=== PATIENT | female | born 1990 | race Caucasian/White ===

== ENCOUNTER 2018-07-09 11:21 | Emergency (ER) | payer SELFPAY ==
--- NOTE | 2018-07-09 12:35 | EDPHYS ---
Physician Documentation [facility] Name: Anu Tiwari Age: 28 yrs Sex: Female : 1990 Arrival Date: 07/09/2018 Time: 11:31 Bed DIS1 Private MD: ED Physician Darvin Hill HPI: 07/09 12:38 This 28 yrs old Female presents to ER via Ambulatory with complaints of Knot kb on Neck, Insect Bite. 12:38 the patient presents with a swollen area of the right ankle. Description: erythematous, kb swollen. Onset: The symptoms/episode began/occurred 2 week(s) ago. Possible cause(s): insect sting. Associated signs and symptoms: Pertinent positives: erythema, swelling, Pertinent negatives: discharge, drainage, foreign body sensation, fever, headache, nausea, shortness of breath, vomiting. Modifying factors: the symptoms are alleviated by nothing, the symptoms are aggravated by pressure, touching. Severity of symptoms: At their worst the symptoms were mild, in the emergency department the symptoms are unchanged. The patient has not experienced similar symptoms in the past. The patient has not recently seen a physician. Also reports knot on neck that has been there for a year. "I'm just being seen because I brought my daughter to be seen.". 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 - Social history:: Smoking status: Patient uses tobacco products, smokes one-half pack cigarettes per day. - Ebola Screening: : Patient denies travel to an Ebola-affected area in the 21 days before illness onset. ROS: 12:39 Constitutional: Negative for fever, chills, and weight loss, Cardiovascular: Negative kb for chest pain, palpitations, and edema, Respiratory: Negative for shortness of breath, cough, wheezing, and pleuritic chest pain, Abdomen/GI: Negative for abdominal pain, nausea, vomiting, diarrhea, and constipation, Neuro: Negative for headache, weakness, numbness, tingling, and seizure. 12:39 Neck: Positive for "knot". 12:39 MS/extremity: Positive for bite, erythema, pain, swelling, tenderness, of the right ankle. Exam: 12:35 Constitutional: This is a well developed, well nourished patient who is awake, alert, kb and in no acute distress. Head/Face: Normocephalic, atraumatic. Chest/axilla: Normal chest wall appearance and motion. Nontender with no deformity. No lesions are appreciated. Cardiovascular: Regular rate and rhythm with a normal S1 and S2. No gallops, murmurs, or rubs. Normal PMI, no JVD. No pulse deficits. Respiratory: Lungs have equal breath sounds bilaterally, clear to auscultation and percussion. No rales, rhonchi or wheezes noted. No increased work of breathing, no retractions or nasal flaring. Abdomen/GI: Soft, non-tender, with normal bowel sounds. No distension or tympany. No guarding or rebound. No evidence of tenderness throughout. Neuro: Awake and alert, GCS 15, oriented to person, place, time, and situation. Cranial nerves II-XII grossly intact. Motor strength 5/5 in all extremities. Sensory grossly intact. Cerebellar exam normal. Normal gait. 12:35 Neck: lump felt at right base of skull, nonmobile. 12:35 Musculoskeletal/extremity: Extremities: noted in the right ankle: erythema, pain, swelling, ROM: no acute changes. Vital Signs: 11:53 BP 108 / 86; Pulse 73; Resp 18; Temp 97.5; Pulse Ox 99% on R/A; Weight 61.23 kg (R); aj1 Height 5 ft. 1 in. (154.94 cm) (R); Pain 6/10; 12:50 BP 110 / 84; Pulse 69; Resp 17; Pulse Ox 100% on R/A; rb1 11:53 Body Mass Index 25.51 (61.23 kg, 154.94 cm) aj1 MDM: 12:01 Patient medically screened. kb 12:37 Data reviewed: vital signs, nurses notes. Data interpreted: Pulse oximetry: on room air kb is 99 %. Interpretation: normal. Counseling: I had a detailed discussion with the patient and/or guardian regarding: the historical points, exam findings, and any diagnostic results supporting the discharge/admit diagnosis, the need for outpatient follow up, a family practitioner, to return to the emergency department if symptoms worsen or persist or if there are any questions or concerns that arise at home. Administered Medications: 12:57 Drug: Bactrim (160 mg-800 mg (DS) 1 tablet Route: PO; rb1 13:08 Follow up: Response: Medication administered at discharge. rb1 Disposition: 16:43 Co-signature as Attending Physician, Darvin Hill MD. rn Disposition: 07/09/18 12:34 Discharged to Home. Impression: Bitten or stung by nonvenomous insect and other nonvenomous arthropods, Local infection of the skin and subcutaneous tissue, unspecified. - Condition is Stable. - Discharge Instructions: Insect Bite, [id number], Wound Infection, Dncg-gn-[id number]. - Prescriptions for Bactrim DS 800- 160 mg Oral Tablet - take 1 tablet by ORAL route every 12 hours for 7 days; 14 tablet. - Medication Reconciliation Form, Thank You Letter, Antibiotic Education, Prescription Opioid Use form. - Follow up: Private Physician; When: 2 - 3 days; Reason: Recheck today's complaints, Continuance of care, Re-evaluation by your physician. Follow up: Emergency Department; When: As needed; Reason: Worsening of condition. Signatures: Lidia Tim, BRAD-C METHODS STUDY ANALYST-Ckb Arlette Bruce RN RN aj1 Darvin Hill MD MD rn Barber, Rebecca, RN RN rb1 Corrections: (The following items were deleted from the chart) 13:08 12:34 07/09/2018 12:34 Discharged to Home. Impression: Bitten or stung by nonvenomous rb1 insect and other nonvenomous arthropods; Local infection of the skin and subcutaneous tissue, unspecified. Condition is Stable. Forms are Medication Reconciliation Form, Thank You Letter, Antibiotic Education, Prescription Opioid Use. Follow up: Private Physician; When: 2 - 3 days; Reason: Recheck today's complaints, Continuance of care, Re-evaluation by your physician. Follow up: Emergency Department; When: As needed; Reason: Worsening of condition. kb
--- NOTE | 2018-07-09 12:35 | ER ---
Nurse's Notes [facility] Name: Anu Tiwari Age: 28 yrs Sex: Female : 1990 Arrival Date: 07/09/2018 Time: 11:31 Bed DIS1 Private MD: Diagnosis: Bitten or stung by nonvenomous insect and other nonvenomous arthropods;Local infection of the skin and subcutaneous tissue, unspecified Presentation: 07/09 11:51 Presenting complaint: Patient states: "I have a really big knot on the back of my neck, aj1 it causes a lot of pressure. Also I got bit by something a week ago and its never went down." Reports the knot to the back of her neck has been there for the past year. Patient has not seen her PHCP regarding this complaint. Swelling noted to side of right foot. Transition of care: patient was not received from another setting of care. Onset of symptoms was 2017. Risk Assessment: Do you want to hurt yourself or someone else? Patient reports no desire to harm self or others. Initial Sepsis Screen: Does the patient meet any 2 criteria? No. Patient's initial sepsis screen is negative. Does the patient have a suspected source of infection? No. Patient's initial sepsis screen is negative. Care prior to arrival: None. 11:51 Method Of Arrival: Ambulatory aj1 11:51 Acuity: MARIPOSA 4 aj1 Triage Assessment: 11:53 General: Appears in no apparent distress. comfortable, Behavior is calm, cooperative, aj1 appropriate for age. Pain: Complains of pain in neck Pain currently is 6 out of 10 on a pain scale. Neuro: Level of Consciousness is awake, alert, obeys commands, Speech is normal, Facial symmetry appears normal. Cardiovascular: Patient's skin is warm and dry. Respiratory: Airway is patent Respiratory effort is even, unlabored, Respiratory pattern is regular, symmetrical. 12:20 Bite description: bite sustained to right ankle by unknown insect, animal information: rb1 vaccination(s) is not applicable. 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 - Social history:: Smoking status: Patient uses tobacco products, smokes one-half pack cigarettes per day. - Ebola Screening: : Patient denies travel to an Ebola-affected area in the 21 days before illness onset. Screenin:20 Abuse screen: Denies threats or abuse. Nutritional screening: No deficits noted. rb1 Tuberculosis screening: No symptoms or risk factors identified. Fall Risk None identified. Assessment: 12:20 General: Appears in no apparent distress. comfortable, Behavior is calm, cooperative, rb1 Denies fever. Pain: Complains of pain in right ankle Pain currently is 5 out of 10 on a pain scale. Pain began Got bit by an insect x 2 weeks, swelling noted to the right ankle. Neuro: Level of Consciousness is awake, alert, obeys commands, Oriented to person, place, time, situation. Cardiovascular: Capillary refill < 3 seconds is brisk in bilateral fingers. Respiratory: Airway is patent Respiratory effort is even, unlabored, Respiratory pattern is regular, symmetrical. GI: No signs and/or symptoms were reported involving the gastrointestinal system. : No signs and/or symptoms were reported regarding the genitourinary system. Derm: Skin is intact, Skin is pink, warm \\T\\ dry. Musculoskeletal: Range of motion: intact in all extremities, Swelling present in right ankle. 12:50 Reassessment: Patient appears in no apparent distress at this time. No changes from rb1 previously documented assessment. Vital Signs: 11:53 BP 108 / 86; Pulse 73; Resp 18; Temp 97.5; Pulse Ox 99% on R/A; Weight 61.23 kg (R); aj1 Height 5 ft. 1 in. (154.94 cm) (R); Pain 6/10; 12:50 BP 110 / 84; Pulse 69; Resp 17; Pulse Ox 100% on R/A; rb1 11:53 Body Mass Index 25.51 (61.23 kg, 154.94 cm) aj1 ED Course: 11:31 Patient arrived in ED. as 11:52 Triage completed. aj1 11:53 Lidia Tim FNP-C [facility]. kb 11:53 Darvin Hill MD is Attending Physician. kb 11:53 Arm band placed on Patient placed in waiting room. aj1 12:20 Patient has correct armband on for positive identification. Bed in low position. Call rb1 light in reach. Side rails up X 1. Pulse ox on. NIBP on. 12:50 Lelo Oviedo, RN is Primary Nurse. rb1 12:50 No provider procedures requiring assistance completed. Patient did not have IV access rb1 during this emergency room visit. Administered Medications: 12:57 Drug: Bactrim (160 mg-800 mg (DS) 1 tablet Route: PO; rb1 13:08 Follow up: Response: Medication administered at discharge. rb1 Outcome: 12:34 Discharge ordered by MD. kb 13:00 Discharged to home ambulatory, with family. rb1 13:00 Condition: stable 13:00 Discharge instructions given to patient, Instructed on discharge instructions, follow up and referral plans. medication usage, Demonstrated understanding of instructions, follow-up care, medications, Prescriptions given X 1. 13:08 Patient left the ED. rb1 Signatures: Lidia Tim, HIGH SCHOOL LIBRARIAN-C HIGH SCHOOL LIBRARIAN-CkArlette Dover RN RN ajKimberly Newby as Lelo Oviedo, RN RN rb1 Corrections: (The following items were deleted from the chart) 13:07 12:50 Discharged to home ambulatory, with family, rb1 rb1 13:07 12:50 Condition: stable rb1 rb1 13: 12:50 Discharge instructions given to patient, Instructed on discharge instructions, rb1 follow up and referral plans. medication usage, Demonstrated understanding of instructions, follow-up care, medications, Prescriptions given X 1, rb1
[2018-07-09] MEDS ORDERED: SMZ./TMP. 800/160 MG TABLET ONE (13:00)
[2018-07-09 13:12] VITALS: TEMP 97.5
[2018-07-09 13:13] VITALS: BP 110/84; O2SAT 100
== END 2018-07-09 13:08 | disposition home or self-care (01) ==
LOC: ER 11:21
DX: S10.96XA Insect bite of unspecified part of neck, initial encounter (principal); S90.561A Insect bite (nonvenomous), right ankle, initial encounter; L08.9 Local infection of the skin and subcutaneous tissue, unspecified; W57.XXXA Bitten or stung by nonvenomous insect and other nonvenomous arthropods, initial encounter; F17.210 Nicotine dependence, cigarettes, uncomplicated; Z91.018 Allergy to other foods
CPT/HCPCS: 99283

== ENCOUNTER 2018-08-09 16:13 | Observation (INO) | payer SELFPAY ==
[2018-08-09] MEDS ORDERED: FAMOTIDINE 20 MG/2 ML VIAL IV ONE (16:47)
[2018-08-09] MEDS ORDERED: NA CHLORIDE 0.9% 1,000 ML ONE (16:47)
[2018-08-09] MEDS ORDERED: ONDANSETRON 4 MG/2 ML VIAL ONE ×2 (16:47→18:12)
[2018-08-09 16:54] LABS: Absolute Lymphocytes (CBC) 2.1 K/uL (0.7-4.9); Absolute Monocytes 0.6 K/uL (0.1-1.3); Absolute Neutrophil 7.5 K/uL (1.8-8.0); Basophils % 1.2 % (0-1.3); Eosinophils % 1.3 % (0-4.4); Lymphocytes % 20.2 % (15.3-44.8); MCH 23.8 pg (27.0-35.0); MCV 71.4 fL (80-100); Monocytes % 5.7 % (3.3-12.3); RBC Red Blood Cell Count 4.76 M/uL (3.86-4.86)
[2018-08-09 17:02] LABS: Urine Bacteria <20 /HPF (<20); Urine Culture Reflex Order REFLEXED; Urine Mucus LIGHT /HPF (NONE SEEN); Urine RBC <5 /HPF (NONE SEEN)
[2018-08-09 17:03] LABS: Urine Amorphous Sediment 2+ /HPF (NONE SEEN)
[2018-08-09 17:10] LABS: ALT/SGPT 16 U/L (12-78); AST/SGOT 9 U/L (15-37); Albumin 3.5 g/dL (3.4-5.0); Alkaline Phosphatase 69 U/L (45-117); BUN Blood Urea Nitrogen 10 mg/dL (7-18); Bicarbonate 24 mmol/L (21-32); Bilirubin Direct 0.1 mg/dL (0-0.2); Bilirubin Total 0.3 mg/dL (0.2-1.0); Glucose Level 100 mg/dL (74-106); Lipase 90 U/L (73-393); Potassium 3.2 mmol/L (3.5-5.1); Protein, Total 7.2 g/dL (6.4-8.2); Sodium Level 139 mmol/L (136-145)
[2018-08-09] MEDS ORDERED: PROMETHAZINE 25 MG/ML VIAL ONE (17:22)
[2018-08-09] MEDS ORDERED: NA CHLORIDE 0.9% 500 ML ONE ×2 (17:22→20:08)
[2018-08-09] MEDS ORDERED: MORPHINE 4 MG/ML SYR ONE (18:12)
--- NOTE | 2018-08-09 19:10 | RAD REPORT ---
EXAM DESCRIPTION: CTAbdomen Pelvis W Contrast - 08/09/2018 6:56 pm CLINICAL HISTORY: Abdominal pain. Abd pain;Nausea / vomiting COMPARISON: CT ABD PELVIS W CONTRAST dated 06/24/2014 TECHNIQUE: Biphasic CT imaging of the abdomen and pelvis was performed with 100 ml non-ionic IV cont rast. All CT scans are performed using dose optimization technique as appropriate and may include automated exposure control or mA/KV adjustment according to patient size. FINDINGS: The lung bases are clear.Stomach demonstrates rugal thickening. The liver demonstrates a small cyst in the superior right lobe. Cholecystectomy clips are noted. The spleen, pancreas, adrenal glands kidneys are within normal limits. No bowel obstruction, free air, free fluid or abscess. The appendix is normal. No evidence of signi ficant lymphadenopathy. No suspicious bony findings. Mild fluid is seen in the endometrial canal. IMPRESSION: Rugal thickening may indicate gastritis.
[2018-08-09 19:23] LABS: Urine Blood TRACE (NEG); Urine Glucose NEGATIVE (NEG); Urine Protein 1+ (NEG); Urine Specific Gravity 1.025 (1.005-1.030)
[2018-08-09] MEDS ORDERED: POTASSIUM 25 MEQ EFFERV TAB ONE (19:55)
[2018-08-09] MEDS ORDERED: KCL 20 MEQ/100 mL IVPB 20 MEQ/100 ML BAG IV ONE (20:08)
[2018-08-09] MEDS ORDERED: PANTOPRAZOLE 40 MG INJ ONE (20:12)
--- NOTE | 2018-08-09 20:25 | ER ---
Nurse's Notes [facility] Name: Anu Tiwari Age: 28 yrs Sex: Female : 1990 Arrival Date: 08/09/2018 Time: 16:15 Bed 20 Private MD: None, None Diagnosis: Nausea and vomiting-Intractable;Diarrhea, unspecified Presentation: 08/09 16:18 Presenting complaint: Patient states: N/V/D for the past 2 days. Denies fever. Reports aj1 diffuse abdominal pain. Transition of care: patient was not received from another setting of care. Onset of symptoms was August 08, 2018. Risk Assessment: Do you want to hurt yourself or someone else? Patient reports no desire to harm self or others. Initial Sepsis Screen: Does the patient meet any 2 criteria? No. Patient's initial sepsis screen is negative. Does the patient have a suspected source of infection? Yes: Acute abdominal pain. Care prior to arrival: None. 16:18 Method Of Arrival: Ambulatory aj1 16:18 Acuity: MARIPOSA 3 aj1 Triage Assessment: 16:19 General: Appears in no apparent distress. uncomfortable, Behavior is calm, cooperative, aj1 appropriate for age. Pain: Complains of pain in abdomen diffusely Pain currently is 10 out of 10 on a pain scale. Neuro: Level of Consciousness is awake, alert, obeys commands. Cardiovascular: Patient's skin is warm and dry. Respiratory: Airway is patent Respiratory effort is even, unlabored, Respiratory pattern is regular, symmetrical. GI: Reports diarrhea, nausea, vomiting. 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 - Social history:: Smoking status: Patient uses tobacco products, smokes one-half pack cigarettes per day. - Ebola Screening: : Patient denies travel to an Ebola-affected area in the 21 days before illness onset. Screenin:30 Abuse screen: Denies threats or abuse. Denies injuries from another. Nutritional sv screening: No deficits noted. Tuberculosis screening: No symptoms or risk factors identified. Fall Risk None identified. Assessment: 16:30 General: Appears in no apparent distress. uncomfortable, well developed, Behavior is sv calm, cooperative. Pain: Complains of pain in abdomen diffusely Pain currently is 10 out of 10 on a pain scale. Is continuous. Neuro: Level of Consciousness is awake, alert, obeys commands, Oriented to person, place, time, situation, Moves all extremities. Full function Gait is steady. Respiratory: Respiratory effort is even, unlabored, Respiratory pattern is regular, symmetrical. GI: Abdomen is flat, Reports intolerance of fluids, intolerance of food, nausea, vomiting, dry heaving. Derm: Skin is normal. 17:21 Reassessment: Patient appears in no apparent distress at this time. No changes from sv previously documented assessment. Patient and/or family updated on plan of care and expected duration. Pain level reassessed. Patient is alert, oriented x 3, equal unlabored respirations, skin warm/dry/pink. 18:15 Reassessment: Patient appears in no apparent distress at this time. No changes from sv previously documented assessment. Patient and/or family updated on plan of care and expected duration. Pain level reassessed. Patient is alert, oriented x 3, equal unlabored respirations, skin warm/dry/pink. 19:09 Reassessment: Patient appears in no apparent distress at this time. No changes from jd3 previously documented assessment. Patient and/or family updated on plan of care and expected duration. Pain level reassessed. Patient is alert, oriented x 3, equal unlabored respirations, skin warm/dry/pink. pt reported dry mouth, provider notified, pt notified of NPO status and given mouth moister swabs. 20:19 Reassessment: Patient appears in no apparent distress at this time. Patient and/or jd3 family updated on plan of care and expected duration. Pain level reassessed. Patient is alert, oriented x 3, equal unlabored respirations, skin warm/dry/pink. 20:58 Reassessment: Patient appears in no apparent distress at this time. No changes from jd3 previously documented assessment. Patient and/or family updated on plan of care and expected duration. Pain level reassessed. Patient is alert, oriented x 3, equal unlabored respirations, skin warm/dry/pink. 21:43 Reassessment: Patient appears in no apparent distress at this time. Patient and/or jd3 family updated on plan of care and expected duration. Pain level reassessed. Patient is alert, oriented x 3, equal unlabored respirations, skin warm/dry/pink. report given to Nathalia VITAL. Vital Signs: 16:19 BP 120 / 77; Pulse 62; Resp 16; Temp 97.7; Pulse Ox 99% on R/A; Weight 58.97 kg (R); aj1 Height 5 ft. 1 in. (154.94 cm) (R); Pain 10/10; 18:10 BP 106 / 70; Pulse 76; Resp 16; Pulse Ox 99% ; sv 19:10 BP 134 / 83; Pulse 64; Resp 16 S; Pulse Ox 99% on R/A; jd3 20:18 BP 130 / 81; Pulse 62; Resp 16 S; Pulse Ox 98% on R/A; jd3 20:57 BP 110 / 69; Pulse 63; Resp 17 S; Pulse Ox 99% on R/A; jd3 16:19 Body Mass Index 24.56 (58.97 kg, 154.94 cm) aj1 ED Course: 16:15 Patient arrived in ED. sb2 16:15 None, None is Private Physician. sb2 16:18 Triage completed. aj1 16:19 Arm band placed on Patient placed in an exam room. aj1 16:25 Jim Blunt PA is PHCP. cp 16:25 Singh Dinh MD is Attending Physician. cp 16:26 Roxi Coles, AMANUEL is Primary Nurse. sv 16:30 Patient has correct armband on for positive identification. Door closed. Warm blanket sv given. Head of bed elevated. 16:35 Pulse ox on. NIBP on. jp3 16:35 Initial lab(s) drawn, by ok, sent to lab. Urine collected: clean catch specimen, clear, jp3 tuan colored. Inserted saline lock: 22 gauge in right antecubital area, using aseptic technique. Blood collected. 16:45 Bed in low position. Call light in reach. Side rails up X 1. Warm blanket given. jp3 16:46 Basic Metabolic Panel Sent. jp3 16:46 CBC with Diff Sent. jp3 16:46 Creatinine for Radiology Sent. jp3 16:46 Hepatic Function Sent. jp3 16:46 Lipase Sent. jp3 16:46 Urine Microscopic Only Sent. jp3 18:11 Radiology exam delayed due to test not completed at this time. nj 18:[address] Scan. sv 18:40 Urine --Ancillary (enter results) Sent. sv 18:[address] nj 18:56 CT Abd/Pelvis - W/Contrast: no oral contrast In Process Unspecified. EDMS 19:00 Report given to Leo VITAL. sv 20:24 Clem Tabares MD is Hospitalizing Provider. cp 21:35 No provider procedures requiring assistance completed. Patient admitted, IV remains in jd3 place. Administered Medications: 16:44 Drug: NS 0.9% 1000 ml Route: IV; Rate: 1 bolus; Site: right antecubital; sv 17:21 Follow up: Response: No adverse reaction; IV Status: Completed infusion; IV Intake: sv 1000ml 16:44 Drug: Pepcid 20 mg Route: IVP; Site: right antecubital; sv 17:20 Follow up: Response: No adverse reaction sv 16:47 Drug: Zofran 4 mg Route: IVP; Site: right antecubital; sv 17:20 Follow up: Response: No adverse reaction sv 17:20 Drug: Phenergan 25 mg Route: IVP; Site: right antecubital; sv 18:07 Follow up: Response: No adverse reaction; No change in condition sv 17:20 Drug: NS 0.9% 500 ml Route: IV; Rate: bolus; Site: right antecubital; sv 18:07 Follow up: Response: No adverse reaction; IV Status: Completed infusion; IV Intake: sv 500ml 18:14 Drug: Zofran 4 mg Route: IVP; Site: right antecubital; sv 18:28 Follow up: Response: No adverse reaction sv 18:16 Drug: morphine 2 mg Route: IVP; Site: right antecubital; sv 18:28 Follow up: Response: No adverse reaction sv 19:54 Drug: Potassium Effervescent Tablet 50 mEq Route: PO; jd3 20:02 Follow up: Response: Other; pt threw up potassium effervescent, provider notified. jd3 20:14 Drug: NS 0.9% 500 ml Route: IV; Rate: bolus; Site: right antecubital; jd3 21:36 Follow up: Response: No adverse reaction; IV Status: Completed infusion; IV Intake: jd3 500ml 20:14 Drug: ProTONIX 40 mg Route: IVP; Site: right antecubital; jd3 20:44 Follow up: Response: No adverse reaction jd3 20:15 Drug: Potassium Chloride 20 mEq Route: IV; Rate: calculated rate; Site: right jd3 antecubital; 21:36 Follow up: Response: infussion slowed due to pt reporting burning at the IV site. site jd3 intact with good blood return. pt reported relief with slower infusion rate.; IV Status: Infusion continued upon admission Intake: 17:21 IV: 1000ml; Total: 1000ml. sv 18:07 IV: 500ml; Total: 1500ml. sv 21:36 IV: 500ml; Total: 2000ml. jd3 Outcome: 20:24 Decision to Hospitalize by Provider. cp 21:42 Condition: stable jd3 21:42 Admitted to Med/surg accompanied by nurse, via wheelchair, room 229, with chart, Report jd3 called to Nathalia VITAL 21:42 Instructed on the need for admit, Demonstrated understanding of instructions. 21:43 Patient left the ED. jd3 Signatures: Dispatcher [employer] EDMS Arlette Bruce RN RN ajRoxi Hemphill RN RN Jim Mercado PA PA Kj Wagner Jonathon RN RN jMalgorzata Franco2 Jeremy Rocha jp3 Corrections: (The following items were deleted from the chart) 22:02 22:00 Patient left the ED. jd3 jd3
--- NOTE | 2018-08-09 20:25 | EDPHYS ---
Physician Documentation [facility] Name: Anu Tiwari Age: 28 yrs Sex: Female : 1990 Arrival Date: 08/09/2018 Time: 16:15 Bed 20 Private MD: None, None ED Physician Singh Dinh HPI: 08/09 16:35 This 28 yrs old Female presents to ER via Ambulatory with complaints of cp Nausea/Vomiting. 16:35 The patient presents to the emergency department with nausea, with "dry heaves", cp vomiting, that is continuous, diarrhea, that is continuous, abdominal pain, of the abdomen diffusely. 16:35 Onset: The symptoms/episode began/occurred 2 day(s) ago. cp 16:35 Possible causes: unknown. Associated signs and symptoms: Pertinent positives: anorexia, cp Pertinent negatives: constipation, fever, GI bleeding, vaginal discharge. Severity of symptoms: in the emergency department the symptoms are unchanged. 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 - Social history:: Smoking status: Patient uses tobacco products, smokes one-half pack cigarettes per day. - Ebola Screening: : Patient denies travel to an Ebola-affected area in the 21 days before illness onset. ROS: 16:40 Constitutional: Positive for poor PO intake, Negative for body aches, chills, fever. cp 16:40 Eyes: Negative for injury, pain, redness, and discharge. cp 16:40 ENT: Negative for drainage from ear(s), ear pain, sore throat, difficulty swallowing, difficulty handling secretions. 16:40 Cardiovascular: Negative for chest pain, edema, palpitations. 16:40 Respiratory: Negative for cough, shortness of breath, wheezing. 16:40 Abdomen/GI: Positive for abdominal pain, nausea, vomiting, and diarrhea, Negative for constipation, hematemesis, black/tarry stool, rectal bleeding. 16:40 : Negative for urinary symptoms. 16:40 Skin: Negative for cellulitis, rash. 16:40 Neuro: Negative for altered mental status, headache, weakness. 16:40 All other systems are negative. Exam: 16:45 Constitutional: The patient appears in no acute distress, alert, awake, non-toxic, well cp developed, well nourished, uncomfortable. 16:45 Head/Face: Normocephalic, atraumatic. cp 16:45 Eyes: Periorbital structures: appear normal, Conjunctiva: normal, no exudate, no injection, Sclera: no appreciated abnormality, Lids and lashes: appear normal, bilaterally. 16:45 ENT: External ear(s): are unremarkable, Nose: is normal, Mouth: Lips: moist, Oral mucosa: pink and intact, moist, Posterior pharynx: is normal, airway is patent, no erythema, no exudate. 16:45 Neck: ROM/movement: is normal, is supple, without pain, no range of motions limitations, no meningismus, no nuchal rigidity. 16:45 Chest/axilla: Inspection: normal, Palpation: is normal, no crepitus, no tenderness. 16:45 Cardiovascular: Rate: normal, Rhythm: regular. 16:45 Respiratory: the patient does not display signs of respiratory distress, Respirations: normal, no use of accessory muscles, no retractions, no splinting, no tachypnea, Breath sounds: are clear throughout, no decreased breath sounds, no stridor, no wheezing. 16:45 Abdomen/GI: Inspection: abdomen appears normal, Bowel sounds: active, all quadrants, Palpation: soft, in all quadrants, moderate abdominal tenderness, in all quadrants, rebound tenderness, is not appreciated, involuntary guarding, is not appreciated. Vital Signs: 16:19 BP 120 / 77; Pulse 62; Resp 16; Temp 97.7; Pulse Ox 99% on R/A; Weight 58.97 kg (R); aj1 Height 5 ft. 1 in. (154.94 cm) (R); Pain 10/10; 18:10 BP 106 / 70; Pulse 76; Resp 16; Pulse Ox 99% ; sv 19:10 BP 134 / 83; Pulse 64; Resp 16 S; Pulse Ox 99% on R/A; jd3 20:18 BP 130 / 81; Pulse 62; Resp 16 S; Pulse Ox 98% on R/A; jd3 20:57 BP 110 / 69; Pulse 63; Resp 17 S; Pulse Ox 99% on R/A; jd3 16:19 Body Mass Index 24.56 (58.97 kg, 154.94 cm) aj1 MDM: 16:25 Patient medically screened. cp 17:00 Differential diagnosis: gastritis, pancreatitis, appendicitis, viral gastroenteritis, cp gastroenteritis. 20:00 Data reviewed: vital signs, nurses notes, lab test result(s), radiologic studies, CT cp scan. 20:00 Response to treatment: the patient's symptoms have mildly improved after treatment, cp Patient continues to report nausea and continues to be intolerant of po fluids, and as a result, I will admit patient. 08/09 16:31 Order name: Urine Microscopic Only; Complete Time: 17:10 ss 08/09 17:10 Interpretation: Normal except: UWBC 5-10; SQEPI 10-20; AMORPH 2+. 08/09 16:35 Order name: Basic Metabolic Panel; Complete Time: 17:11 cp 08/09 17:12 Interpretation: Normal except: K 3.2; CA 8.3. 08/09 16:35 Order name: CBC with Diff; Complete Time: 17:10 cp 08/09 17:11 Interpretation: Normal except: HGB 11.3; HCT 34.0; MCV 71.4; MCH 23.8; RDW 17.6. 08/09 16:35 Order name: Creatinine for Radiology; Complete Time: 17:10 cp 08/09 16:35 Order name: Hepatic Function; Complete Time: 17:11 cp 08/09 17:12 Interpretation: Normal except: AST 9; GLOB 3.7; A/G 0.9. 08/09 16:35 Order name: Lipase; Complete Time: 17:11 cp 08/09 19:46 Interpretation: LIP 90; Reviewed. 08/09 17:03 Order name: Urine Culture EDMS 08/09 18:02 Order name: CT Abd/Pelvis - W/Contrast: no oral contrast; Complete Time: 19:17 cp 08/09 18:39 Order name: Urine Dipstick--Ancillary (enter results); Complete Time: 19:44 bd 08/09 19:45 Interpretation: Normal except: UKET 1+; UBLD TRACE; UPROT 1+; UESTR 1+. cp 08/09 18:39 Order name: Urine --Ancillary (enter results); Complete Time: 19:44 bd 08/09 16:35 Order name: IV Saline Lock; Complete Time: 16:42 cp 08/09 16:35 Order name: Labs collected and sent; Complete Time: 16:42 cp 08/09 16:35 Order name: Urine Test (obtain specimen); Complete Time: 16:39 cp 08/09 16:35 Order name: Urine Dipstick-Ancillary (obtain specimen); Complete Time: 16:39 cp 08/09 17:33 Order name: PO challenge; Complete Time: 19:55 cp 08/09 19:19 Order name: PO challenge; Complete Time: 19:40 cp Administered Medications: 16:44 Drug: NS 0.9% 1000 ml Route: IV; Rate: 1 bolus; Site: right antecubital; sv 17:21 Follow up: Response: No adverse reaction; IV Status: Completed infusion; IV Intake: sv 1000ml 16:44 Drug: Pepcid 20 mg Route: IVP; Site: right antecubital; sv 17:20 Follow up: Response: No adverse reaction sv 16:47 Drug: Zofran 4 mg Route: IVP; Site: right antecubital; sv 17:20 Follow up: Response: No adverse reaction sv 17:20 Drug: Phenergan 25 mg Route: IVP; Site: right antecubital; sv 18:07 Follow up: Response: No adverse reaction; No change in condition sv 17:20 Drug: NS 0.9% 500 ml Route: IV; Rate: bolus; Site: right antecubital; sv 18:07 Follow up: Response: No adverse reaction; IV Status: Completed infusion; IV Intake: sv 500ml 18:14 Drug: Zofran 4 mg Route: IVP; Site: right antecubital; sv 18:28 Follow up: Response: No adverse reaction sv 18:16 Drug: morphine 2 mg Route: IVP; Site: right antecubital; sv 18:28 Follow up: Response: No adverse reaction sv 19:54 Drug: Potassium Effervescent Tablet 50 mEq Route: PO; jd3 20:02 Follow up: Response: Other; pt threw up potassium effervescent, provider notified. jd3 20:14 Drug: NS 0.9% 500 ml Route: IV; Rate: bolus; Site: right antecubital; jd3 21:36 Follow up: Response: No adverse reaction; IV Status: Completed infusion; IV Intake: jd3 500ml 20:14 Drug: ProTONIX 40 mg Route: IVP; Site: right antecubital; jd3 20:44 Follow up: Response: No adverse reaction jd3 20:15 Drug: Potassium Chloride 20 mEq Route: IV; Rate: calculated rate; Site: right jd3 antecubital; 21:36 Follow up: Response: infussion slowed due to pt reporting burning at the IV site. site jd3 intact with good blood return. pt reported relief with slower infusion rate.; IV Status: Infusion continued upon admission Disposition: 08/09/18 20:24 Hospitalization ordered by Clem Tabares for Observation. Preliminary diagnosis are Nausea and vomiting - Intractable, Diarrhea, unspecified. - Bed requested for Telemetry/MedSurg (observation). - Status is Observation. jd3 - Condition is Stable. - Problem is new. - Symptoms have improved. UTI on Admission? No Addendum: 08/13/2018 00:57 Co-signature as Attending Physician, Singh Dinh MD. g s Signatures: Dispatcher [employer] EDMS Arlette Bruce RN RN aj1 Roxi Coles RN RN Avril Irizarry RN RN mw Page, Corey, PA PA cp Starr, Gregory, MD MD Leo Romero RN RN jd3 Corrections: (The following items were deleted from the chart) 08/09 17:12 17:11 Normal except: K 3.2. cp cp 21:01 20:24 Hospitalization Ordered by Clem Tabares MD for Observation. Preliminary mw diagnosis is Nausea and vomiting - Intractable; Diarrhea, unspecified. Bed requested for Telemetry/MedSurg (observation). Status is Observation. Condition is Stable. Problem is new. Symptoms have improved. UTI on Admission? No. cp 22:00 21:01 08/09/2018 20:24 Hospitalization Ordered by Clem Tabares MD for Observation. jd3 Preliminary diagnosis is Nausea and vomiting - Intractable; Diarrhea, unspecified. Bed requested for Telemetry/MedSurg (observation). Status is Observation. Condition is Stable. Problem is new. Symptoms have improved. UTI on Admission? No. mw
[2018-08-09] MEDS ORDERED: ACETAMINOPHEN 500 MG TAB PO PRN (21:00)
[2018-08-09 22:07] VITALS: BMI 25.1
[2018-08-09] MEDS: NA CHLORIDE 0.9% 1,000 ML IV SCH (22:14)
[2018-08-09] MEDS: MORPHINE 2 MG/ML SYR IV PRN (22:47)
[2018-08-09] MEDS: ONDANSETRON 4 MG/2 ML VIAL IV PRN (22:47)
[2018-08-09] MEDS ORDERED: KCL 20 MEQ/100 mL IVPB 20 MEQ/100 ML BAG IV SCH (23:45)
[2018-08-10 02:30] VITALS: O2SAT 97
[2018-08-10 06:02] LABS: Absolute Lymphocytes (CBC) 3.9 K/uL (0.7-4.9); Absolute Neutrophil 4.7 K/uL (1.8-8.0); Basophils % 0.9 % (0-1.3); Eosinophils % 2.6 % (0-4.4); Hematocrit 32.3 % (36.0-45.0); Lymphocytes % 39.4 % (15.3-44.8); MCH 23.8 pg (27.0-35.0); MCV 72.5 fL (80-100); MPV 9.5 fL (7.6-11.3); Monocytes % 9.7 % (3.3-12.3); RBC Red Blood Cell Count 4.46 M/uL (3.86-4.86)
[2018-08-10 06:20] LABS: ALT/SGPT 16 U/L (12-78); AST/SGOT 10 U/L (15-37); Alkaline Phosphatase 60 U/L (45-117); BUN Blood Urea Nitrogen 4 mg/dL (7-18); Bicarbonate 26 mmol/L (21-32); Bilirubin Total 0.3 mg/dL (0.2-1.0); Glucose Level 73 mg/dL (74-106); Magnesium 2.2 mg/dL (1.8-2.4); Potassium 4.4 mmol/L (3.5-5.1); Protein, Total 6.1 g/dL (6.4-8.2); Sodium Level 141 mmol/L (136-145)
[2018-08-10 06:30] VITALS: TEMP 98.3
[2018-08-10 07:13] VITALS: BP 108/63
[2018-08-10] MEDS: MORPHINE 2 MG/ML SYR IV PRN (07:14)
[2018-08-10] MEDS: ONDANSETRON 4 MG/2 ML VIAL IV PRN (07:14)
[2018-08-10] MEDS: NA CHLORIDE 0.9% 1,000 ML IV SCH (08:12)
--- NOTE | 2018-08-10 09:19 | P.HP ---
Certification for Inpatient Patient admitted to: Observation With expected LOS: <2 Midnights Patient will require the following post-hospital care: None Practitioner: I am a practitioner with admitting privileges, knowledge of patient current condition, hospital course, and medical plan of care. Services: Services provided to patient in accordance with Admission requirements found in Title 42 Section 412.3 of the Code of Federal Regulations Patient History Date of Service: 08/09/18 Reason for admission: Intractable nausea and vomiting History of Present Illness: Patient is a 28yo who was admitted to the hospital with intractable nausea and vomiting. Patient has had symptoms for the last couple of days. Her symptoms have been getting progressively worse. Patient was admitted to the hospital for further evaluation. In the emergency room patient had CT scan which revealed gastritis. Otherwise, patient with no other symptoms. Her nausea has improved in the emergency room. Will keep her NPO and will consider restarting clear liquid diet after evaluation in the morning. Allergies Fish Containing Products Allergy (Verified 08/09/18 22:25) Itching/Hives/Rash Home Medications: NK [No Home Meds] 08/09/18 - Past Medical/Surgical History Has patient received pneumonia vaccine in the past: No Diabetic: No Past Medical History: Patient denies medical history -: Choecystectomy -: X3 - Family History Father Family History: Reviewed- Non-Contributory - Social History Smoking Status: Current every day smoker Alcohol use: No CD- Drugs: No Caffeine use: Yes Place of Residence: Home Review of Systems 10-point ROS is otherwise unremarkable Physical Examination - Vital Signs Temperature: 98.3 F Blood Pressure: 108/63 Pulse: 62 Respirations: 15 Pulse Ox (%): 97 - Physical Exam General: Alert, In no apparent distress, Oriented x3 HEENT: Atraumatic, PERRLA, Mucous membr. moist/pink, EOMI, Sclerae nonicteric Neck: Supple, 2+ carotid pulse no bruit, No LAD, Without JVD or thyroid abnormality Respiratory: Clear to auscultation bilaterally, Normal air movement Cardiovascular: Regular rate/rhythm, Normal S1 S2, No murmurs Gastrointestinal: Normal bowel sounds, Soft and benign, Non-distended, No tenderness Musculoskeletal: No clubbing, No swelling, No tenderness Integumentary: No rashes Neurological: Normal gait, Normal speech, Normal strength at 5/5 x4 extr, Normal tone, Sensation intact, Cranial nerves 3-12 intact, Normal affect Lymphatics: No axilla or inguinal lymphadenopathy - Studies Laboratory Data (last 24 hrs) 08/09/18 16:35: Creatinine 0.70 08/09/18 16:35: WBC 10.5, Hgb 11.3 L, Hct 34.0 L, Plt Count 321 08/09/18 16:35: Sodium 139, Potassium 3.2 L, BUN 10, Creatinine 0.70, Glucose 100, Total Bilirubin 0.3, AST 9 L, ALT 16, Alkaline Phosphatase 69, Lipase 90 Assessment & Plan - Problems (Diagnosis) (1) Viral gastroenteritis Current Visit: Yes Status: Acute (2) Diarrhea Onset Date: 08/10/18 Current Visit: Yes Status: Acute (3) Hypokalemia Onset Date: 08/10/18 Current Visit: Yes Status: Acute (4) Intractable nausea and vomiting Onset Date: 08/10/18 Current Visit: Yes Status: Acute - Plan 1. Continue with IV hydration 2. Continue with IV antiemetics 3. Stool studies if diarrhea is persistent 4. NPO coronary evaluation in the morning 5. GI and DVT prophylaxis Discharge Plan: Home Plan to discharge in: 24 Hours - Advance Directives Does patient have a Living Will: No Does patient have a Durable POA for Healthcare: No - Code Status/Comfort Care Code Status Assessed: Yes Code Status: Full Code Critical Care: No Time Spent Managing PTS Care (In Minutes): 50
[2018-08-10] MEDS ORDERED: SODIUM CHLORIDE 0.9% 10ML INJ IV PRN (09:22)
[2018-08-10] MEDS ORDERED: PANTOPRAZOLE 40 MG INJ IVP SCH (09:22)
--- NOTE | 2018-08-10 12:33 | P.SSS ---
Patient History Date of Service: 08/10/18 Reason for admission: Intractable nausea and vomiting History of Present Illness: Patient is a 28yo who was admitted to the hospital with intractable nausea and vomiting. Patient has had symptoms for the last couple of days. Her symptoms have been getting progressively worse. Patient was admitted to the hospital for further evaluation. In the emergency room patient had CT scan which revealed gastritis. Otherwise, patient with no other symptoms. Her nausea has improved in the emergency room. Will keep her NPO and will consider restarting clear liquid diet after evaluation in the morning. Allergies Fish Containing Products Allergy (Verified 08/09/18 22:25) Itching/Hives/Rash Home Medications: Ondansetron HCl [Zofran] 4 mg PO DAILY PRN #10 tablet 08/10/18 - Past Medical/Surgical History Has patient received pneumonia vaccine in the past: No Diabetic: No -: Choecystectomy -: X3 - Social History Smoking Status: Current every day smoker Alcohol use: No CD- Drugs: No Caffeine use: Yes Place of Residence: Home Review of Systems 10-point ROS is otherwise unremarkable Physical Examination - Vital Signs Temperature: 98.3 F Blood Pressure: 108/63 Pulse: 62 Respirations: 15 Pulse Ox (%): 97 - Physical Exam General: Alert, In no apparent distress HEENT: Atraumatic, PERRLA, Mucous membr. moist/pink, EOMI, Sclerae nonicteric Neck: Supple, 2+ carotid pulse no bruit, No LAD, Without JVD or thyroid abnormality Respiratory: Clear to auscultation bilaterally, Normal air movement Cardiovascular: Regular rate/rhythm, Normal S1 S2 Gastrointestinal: Normal bowel sounds, No tenderness Musculoskeletal: No tenderness Integumentary: No rashes Neurological: Normal gait, Normal speech, Normal strength at 5/5 x4 extr, Normal tone, Normal affect Lymphatics: No axilla or inguinal lymphadenopathy - Studies Laboratory Data (last 24 hrs) 08/09/18 16:35: Creatinine 0.70 08/09/18 16:35: WBC 10.5, Hgb 11.3 L, Hct 34.0 L, Plt Count 321 08/09/18 16:35: Sodium 139, Potassium 3.2 L, BUN 10, Creatinine 0.70, Glucose 100, Total Bilirubin 0.3, AST 9 L, ALT 16, Alkaline Phosphatase 69, Lipase 90 - Diagnosis (Problem(s)) (1) Diarrhea Onset Date: 08/10/18 Status: Acute (2) Hypokalemia Onset Date: 08/10/18 Status: Acute (3) Intractable nausea and vomiting Onset Date: 08/10/18 Status: Acute (4) Viral gastroenteritis Status: Acute Treatment Summary: Overall during the hospital stay patient remained stable The patient was initially admitted to the hospital for viral gastroenteritis. Was kept NPO initially. Patient had resolution of her nausea and vomiting and thus was advanced to a clear liquid diet. Patient did tolerate her diet well and thus was discharged home under stable condition. Patient was given a prescription for Zofran for nausea p.r.n.. Patient was asked to continue taking 7 violette along with crackers and have Vernon bland diet for couple of days to avoid any further complication. Patient demonstrated understanding and thus was discharged home under stable condition - Disposition Disposition: ROUTINE DISCHARGE Condition: GOOD Patient Discharge Instructions: Please F.u with PCP in 1 to 2 weeks post disharge. New medication. Zofran 4mg PRN for nausea Diet: Regular Activity: Ad aamir
== END 2018-08-10 11:52 | disposition home or self-care (01) ==
LOC: ER 16:13 → ERHOLD 20:51 → 2ND 21:34
PROVIDERS: ADMIT Hospitalist; ATTEND Hospitalist
DX: A08.4 Viral intestinal infection, unspecified (principal); E87.6 Hypokalemia; F17.210 Nicotine dependence, cigarettes, uncomplicated; Z91.018 Allergy to other foods
CPT/HCPCS: 36415; 74177; 80048; 80053; 80076; 81003; 81015; 81025; 83690; 83735; 85025; 87086; 87088; 96361; 96365; 96375; 99285; C9113; G0378; J2270; J2405; J2550; J7030; Q9967

== ENCOUNTER 2019-12-19 11:50 | Emergency (ER) | payer SELFPAY ==
--- NOTE | 2019-12-19 12:31 | ER ---
Nurse's Notes [facility] Name: Anu Tiwari Age: 29 yrs Sex: Female : 1990 Arrival Date: 12/19/2019 Time: 11:53 Bed 28 Private MD: Diagnosis: Unspecified Cyst Right Foot Presentation: 12/19 12:05 Presenting complaint: Patient states: R ankle swelling x 1 year. Transition of care: ca1 patient was not received from another setting of care. Onset of symptoms was December 19, 2019. Risk Assessment: Do you want to hurt yourself or someone else? Patient reports no desire to harm self or others. Initial Sepsis Screen: Does the patient meet any 2 criteria? No. Patient's initial sepsis screen is negative. Does the patient have a suspected source of infection? No. Patient's initial sepsis screen is negative. Care prior to arrival: None. 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 - Coronavirus screen:: The patient has NOT traveled to [place] in the past 14 days. The patient has NOT had contact with known/suspected case of Coronavirus?. - Social history:: Smoking status: Patient reports the use of cigarette tobacco products, smokes one-half pack cigarettes per day. - Ebola Screening: : Patient negative for fever greater than or equal to 101.5 degrees Fahrenheit, and additional compatible Ebola Virus Disease symptoms Patient denies exposure to infectious person Patient denies travel to an Ebola-affected area in the 21 days before illness onset No symptoms or risks identified at this time. Screenin:09 Abuse screen: Denies threats or abuse. Denies injuries from another. Nutritional ca1 screening: No deficits noted. Tuberculosis screening: No symptoms or risk factors identified. Fall Risk None identified. Assessment: 12:27 General: Appears in no apparent distress. comfortable, Behavior is calm, cooperative. mg2 Pain: Complains of pain in right ankle. Neuro: Level of Consciousness is awake, alert, obeys commands, Oriented to person, place, time, situation. Cardiovascular: Capillary refill < 3 seconds Patient's skin is warm and dry. Respiratory: Airway is patent Respiratory effort is even, unlabored, Respiratory pattern is regular, symmetrical. GI: No signs and/or symptoms were reported involving the gastrointestinal system. : No signs and/or symptoms were reported regarding the genitourinary system. EENT: No signs and/or symptoms were reported regarding the EENT system. Derm: Skin is intact, is healthy with good turgor, Skin is pink, warm \T\ dry. normal. Musculoskeletal: Circulation, motion, and sensation intact. Capillary refill < 3 seconds. Vital Signs: 12:06 BP 108 / 60; Pulse 86; Resp 19 S; Temp 98.4(O); Pulse Ox 99% on R/A; Weight 61.23 kg ca1 (R); Height 5 ft. 1 in. (154.94 cm) (R); 12:06 Body Mass Index 25.51 (61.23 kg, 154.94 cm) ca1 ED Course: 11:53 Patient arrived in ED. mr 11:59 Sandeep Post PA is PHCP. jr8 11:59 Darvin Hill MD is Attending Physician. jr8 12:05 Triage completed. ca1 12:06 Arm band placed on right wrist. ca1 12:09 Patient has correct armband on for positive identification. Bed in low position. Call ca1 light in reach. Side rails up X 1. Pulse ox on. NIBP on. 12:11 Yong Purvis RN is Primary Nurse. mg2 12:25 Andrew Liz MD is Referral Physician. jr8 12:28 No provider procedures requiring assistance completed. Patient did not have IV access mg2 during this emergency room visit. Administered Medications: No medications were administered Outcome: 12:27 Discharge ordered by . jr8 12:34 Discharged to home ambulatory, with family. mg2 12:34 Condition: stable 12:34 Discharge instructions given to patient, family, Instructed on discharge instructions, follow up and referral plans. Demonstrated understanding of instructions, follow-up care. 12:34 Patient left the ED. mg2 Signatures: María Olivarez mr Sandeep Post PA PA jr8 Yong Purvis RN RN mg2 Acob, Jewels, RN RN ca1
--- NOTE | 2019-12-19 12:32 | EDPHYS ---
Physician Documentation [facility] Name: Anu Tiwari Age: 29 yrs Sex: Female : 1990 Arrival Date: 12/19/2019 Time: 11:53 Bed 28 Private MD: ED Physician Darvin Hill HPI: 12/19 12:20 This 29 yrs old Female presents to ER via Ambulatory with complaints of jr8 swollen area. 12:20 the patient presents with a swollen area of the right foot. Description: The affected jr8 area is small, localized, well demarcated. Possible cause(s): unknown. Associated signs and symptoms: The patient has no apparent associated signs or symptoms. Modifying factors: the symptoms are alleviated by nothing, the symptoms are aggravated by movement, walking, touching. Severity of symptoms: At their worst the symptoms were mild, in the emergency department the symptoms are unchanged. The patient has not experienced similar symptoms in the past. The patient has not recently seen a physician. Stated that she had what she thought was a bug bite a while ago to dorsal right foot. Now has chronic swollen region to foot that is not going away and becoming painful . 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 - Coronavirus screen:: The patient has NOT traveled to [place] in the past 14 days. The patient has NOT had contact with known/suspected case of Coronavirus?. - Social history:: Smoking status: Patient reports the use of cigarette tobacco products, smokes one-half pack cigarettes per day. - Ebola Screening: : Patient negative for fever greater than or equal to 101.5 degrees Fahrenheit, and additional compatible Ebola Virus Disease symptoms Patient denies exposure to infectious person Patient denies travel to an Ebola-affected area in the 21 days before illness onset No symptoms or risks identified at this time. ROS: 12:20 Eyes: Negative for injury, pain, redness, and discharge, ENT: Negative for injury, jr8 pain, and discharge, Neck: Negative for injury, pain, and swelling, Cardiovascular: Negative for chest pain, palpitations, and edema, Respiratory: Negative for shortness of breath, cough, wheezing, and pleuritic chest pain, Abdomen/GI: Negative for abdominal pain, nausea, vomiting, diarrhea, and constipation, Back: Negative for injury and pain, MS/Extremity: Negative for injury and deformity, Neuro: Negative for headache, weakness, numbness, tingling, and seizure. 12:20 Skin: Positive for swelling, of the right foot. Exam: 12:20 Constitutional: This is a well developed, well nourished patient who is awake, alert, jr8 and in no acute distress. Cardiovascular: Regular rate and rhythm with a normal S1 and S2. No gallops, murmurs, or rubs. Normal PMI, no JVD. No pulse deficits. Respiratory: Lungs have equal breath sounds bilaterally, clear to auscultation and percussion. No rales, rhonchi or wheezes noted. No increased work of breathing, no retractions or nasal flaring. Skin: Warm, dry with normal turgor. Normal color with no rashes, no lesions, and no evidence of cellulitis. Neuro: Awake and alert, GCS 15, oriented to person, place, time, and situation. Cranial nerves II-XII grossly intact. Motor strength 5/5 in all extremities. Sensory grossly intact. Cerebellar exam normal. Normal gait. 12:20 Musculoskeletal/extremity: Extremities: grossly normal except: noted in the right foot: Patient has approximately 2.5 cm well circumscribed cystic like structure to right dorsal foot near the lateral malleolus. No erythema or cellulitis. Minimal tenderness to palpation. Mass is moveable , ROM: intact in all extremities, Circulation is intact in all extremities. Pulses: noted to be 2+ in the right radial artery, right dorsalis pedis artery, left radial artery and left dorsalis pedis artery, Sensation intact. Vital Signs: 12:06 BP 108 / 60; Pulse 86; Resp 19 S; Temp 98.4(O); Pulse Ox 99% on R/A; Weight 61.23 kg ca1 (R); Height 5 ft. 1 in. (154.94 cm) (R); 12:06 Body Mass Index 25.51 (61.23 kg, 154.94 cm) ca1 MDM: 12:16 Patient medically screened. [facility] 12:20 Data reviewed: vital signs, nurses notes, and as a result, I will discharge patient. jr8 Data interpreted: Pulse oximetry: on room air is 99 %. Interpretation: normal. Counseling: I had a detailed discussion with the patient and/or guardian regarding: the historical points, exam findings, and any diagnostic results supporting the discharge/admit diagnosis, the need for outpatient follow up, a plastic surgeon, to return to the emergency department if symptoms worsen or persist or if there are any questions or concerns that arise at home. ED course: Discussed with patient that cystic structure is not infected at this time. Needs to see plastics for elective removal if it is becoming a hinderance to her. Patient good with this plan. Administered Medications: No medications were administered Disposition: 14:27 Co-signature as Attending Physician, Darvin Hill MD. rn Disposition: 12/19/19 12:27 Discharged to Home. Impression: Unspecified Cyst Right Foot . - Condition is Stable. - Discharge Instructions: Epidermal Cyst. - Medication Reconciliation Form, Thank You Letter, Antibiotic Education, Prescription Opioid Use form. - Follow up: Andrew Liz MD; When: 2 - 3 days; Reason: Recheck today's complaints, Continuance of care, Re-evaluation by your physician. - Problem is new. - Symptoms are unchanged. Signatures: Darvin Hill MD MD rn Roszak, Josh, PA PA jr8 Yong Purvis RN RN mg2 Jewels Maravilla RN RN ca1 Corrections: (The following items were deleted from the chart) 12:34 12:27 12/19/2019 12:27 Discharged to Home. Impression: Unspecified Cyst Right Foot . mg2 Condition is Stable. Forms are Medication Reconciliation Form, Thank You Letter, Antibiotic Education, Prescription Opioid Use. Follow up: Andrew Liz; When: 2 - 3 days; Reason: Recheck today's complaints, Continuance of care, Re-evaluation by your physician. Problem is new. Symptoms are unchanged. jr8
[2019-12-19 12:55] VITALS: BP 108/60; TEMP 98.4; O2SAT 99
== END 2019-12-19 12:34 | disposition home or self-care (01) ==
LOC: ER 11:50
DX: L72.0 Epidermal cyst (principal); Z91.013 Allergy to seafood
CPT/HCPCS: 99283

== ENCOUNTER 2020-06-29 08:53 | Emergency (ER) | payer SELFPAY ==
--- NOTE | 2020-06-29 10:59 | ER ---
Nurse's Notes [facility] Name: Anu Tiwari Age: 30 yrs Sex: Female : 1990 Arrival Date: 06/29/2020 Time: 08:56 Bed 13 Private MD: Diagnosis: Localized swelling, mass and lump, right lower limb-ankle;Localized swelling, mass and lump of skin and subcutaneous tissue-base of cervical spine Presentation: 06/29 09:05 Chief complaint: Patient states: swelling to R lateral ankle that began 1.5 years ago. ss Pt reports she has been seen in ER for this twice and states that nothing was done. Pt reports that the puffiness around the area is getting worse and causing her more pain when she walks. Pt has not followed up with specialist. Coronavirus screen: Client denies travel out of the [place] in the last 14 days. Ebola Screen: Patient denies exposure to infectious person. Patient denies travel to an Ebola-affected area in the 21 days before illness onset. Initial Sepsis Screen: Does the patient meet any 2 criteria? No. Patient's initial sepsis screen is negative. Does the patient have a suspected source of infection? No. Patient's initial sepsis screen is negative. Risk Assessment: Do you want to hurt yourself or someone else? Patient reports no desire to harm self or others. Onset of symptoms was 2019. 09:05 Method Of Arrival: Ambulatory ss 09:05 Acuity: MARIPOSA 4 ss Historical: - Allergies: 09:08 Fish Containing Products; ss - PSHx: 09:08 None; ss - Immunization history:: Adult Immunizations up to date. - Social history:: Smoking status: Patient reports the use of cigarette tobacco products, smokes one-half pack cigarettes per day. Screenin:29 Abuse screen: Denies threats or abuse. Denies injuries from another. Nutritional ss screening: No deficits noted. Tuberculosis screening: Never had TB. Fall Risk None identified. Assessment: 10:29 General: Appears in no apparent distress. Behavior is calm, cooperative. General: Pt ss reports that her R ankle lump has been there for over a year and a half and seems to be getting worse. States she is unable to follow up with specialist because of her insurance. Has not had XRAY in the past. Pain: Complains of pain in right ankle Pain currently is 6 out of 10 on a pain scale. Quality of pain is described as tender, Is continuous. Neuro: Level of Consciousness is awake, alert, obeys commands, Oriented to person, place, time, situation. Cardiovascular: Capillary refill < 3 seconds is brisk in bilateral fingers. Respiratory: Airway is patent Respiratory effort is even, unlabored, Respiratory pattern is regular, symmetrical. GI: Patient currently denies diarrhea, nausea, vomiting. Derm: Skin is intact, is healthy with good turgor, Skin is dry, Skin is pink, warm \T\ dry. normal. Musculoskeletal: Circulation, motion, and sensation intact. Range of motion: intact in all extremities, Swelling absent. Vital Signs: 09:05 BP 97 / 67; Pulse 79; Resp 14; Temp 98.5(TE); Pulse Ox 100% on R/A; Weight 65.77 kg; ss Height 5 ft. 1 in. (154.94 cm); Pain 6/10; 09:05 Body Mass Index 27.40 (65.77 kg, 154.94 cm) ss ED Course: 08:56 Patient arrived in ED. ds1 09:08 Triage completed. ss 09:08 Arm band placed on right wrist. ss 10:22 Jim Blunt PA is PHCP. cp 10:22 Clem Ma MD is Attending Physician. cp 10:28 Mary Anne Baker, AMANUEL is Primary Nurse. ss 10:29 Patient has correct armband on for positive identification. Bed in low position. Call ss light in reach. 10:57 Franck Yancey MD is Referral Physician. cp 11:01 No provider procedures requiring assistance completed. Patient did not have IV access ss during this emergency room visit. Administered Medications: No medications were administered Outcome: 10:59 Discharge ordered by . cp 11:01 Medical screen evaluation completed per provider. ss 11:01 Condition: good 11:01 Instructed on follow up and referral plans. 11:02 Patient left the ED. ss Signatures: Armida Casanova ds1 Mary Anne Baker, RN RN Jim Blunt PA PA cp
--- NOTE | 2020-06-29 10:59 | EDPHYS ---
Physician Documentation [facility] Name: Anu Tiwari Age: 30 yrs Sex: Female : 1990 Arrival Date: 06/29/2020 Time: 08:56 Bed 13 Private MD: ED Physician Clem Ma HPI: 06/29 10:53 This 30 yrs old Female presents to ER via Ambulatory with complaints of Ankle cp Swelling - Pain, Back Sore. 10:53 The patient presents with painful mass. The complaints affect the right ankle. Onset: cp The symptoms/episode began/occurred 1.5 year(s) ago. Context: resulted from an unknown cause. Patient reports being seen in ED in the past for similar complaints. Historical: - Allergies: :08 Fish Containing Products; ss - PSHx: 09:08 None; ss - Immunization history:: Adult Immunizations up to date. - Social history:: Smoking status: Patient reports the use of cigarette tobacco products, smokes one-half pack cigarettes per day. ROS: 10:53 Constitutional: Negative for fever. cp 10:53 Skin: Positive for swelling, of the base of c-spine and lateral aspect right ankle, tenderness, Negative for rash. 10:53 All other systems are negative. Exam: 10:54 Skin: ill defined swelling base of cervical spine w/o erythema and drainage. cp 10:55 Musculoskeletal/extremity: Extremities: grossly normal except: noted in the lateral cp side below lateral malleolus of ankle: tender, well-circumscribed and mobile mass without erythema and/or drainage, There is no evidence of cellulitis and/or abscess. 10:55 Constitutional: The patient appears in no acute distress, alert, awake, well developed, cp well nourished. Vital Signs: 09:05 BP 97 / 67; Pulse 79; Resp 14; Temp 98.5(TE); Pulse Ox 100% on R/A; Weight 65.77 kg; ss Height 5 ft. 1 in. (154.94 cm); Pain 6/10; 09:05 Body Mass Index 27.40 (65.77 kg, 154.94 cm) ss MDM: 10:35 Patient medically screened. cp 10:35 Differential diagnosis: cyst, abscess, cellulitis. cp 10:59 Data reviewed: vital signs, nurses notes, old medical records, notes from previous cp visit and as a result, I will discharge patient. 10:59 Special discussion: Based on the history and exam findings, there is no indication for cp further emergent testing or inpatient evaluation. I discussed with the patient/guardian the need to see the general surgeon for further evaluation of the symptoms. Administered Medications: No medications were administered Disposition: 11:10 Chart complete. cp Disposition: 06/29/20 10:59 Discharged to Home as Medical Screen. Impression: Localized swelling, mass and lump, right lower limb - ankle, Localized swelling, mass and lump of skin and subcutaneous tissue - base of cervical spine. - Condition is Stable. - Work release form, Medication Reconciliation Form, Thank You Letter, Antibiotic Education, Prescription Opioid Use form. - Follow up: Franck Yancey MD; When: 2 - 3 days; Reason: Recheck today's complaints. - Problem is an ongoing problem. - Symptoms are unchanged. Signatures: Mary Anne Baker RN RN ss Jim Blunt PA PA cp Corrections: (The following items were deleted from the chart) 11:02 10:59 06/29/2020 10:59 Discharged to Home as Medical Screen. Impression: Localized ss swelling, mass and lump, right lower limb - ankle; Localized swelling, mass and lump of skin and subcutaneous tissue - base of cervical spine. Condition is Stable. Forms are Medication Reconciliation Form, Thank You Letter, Antibiotic Education, Prescription Opioid Use. Follow up: Franck Yancey; When: 2 - 3 days; Reason: Recheck today's complaints. Problem is an ongoing problem. Symptoms are unchanged. cp
[2020-07-02 15:25] VITALS: BP 97/67; TEMP 98.5; O2SAT 100
== END 2020-06-29 11:02 | disposition home or self-care (01) ==
LOC: ER 08:53
DX: R22.41 Localized swelling, mass and lump, right lower limb (principal); R22.9 Localized swelling, mass and lump, unspecified; F17.210 Nicotine dependence, cigarettes, uncomplicated; Z91.013 Allergy to seafood
CPT/HCPCS: 99281

== ENCOUNTER 2020-12-22 13:32 | Emergency (ER) | payer SELFPAY ==
--- NOTE | 2020-12-22 15:44 | ER ---
Nurse's Notes [facility] Name: Anu Tiwari Age: 30 yrs Sex: Female : 1990 Arrival Date: 12/22/2020 Time: 13:34 Bed Waiting Private MD: Diagnosis: Presentation: 12/22 13:55 Chief complaint: Patient states: R lateral ankle pain and swelling for 1 week. No ll1 drainage. No fever. Coronavirus screen: Client denies travel out of the [place] in the last 14 days. At this time, the client does not indicate any symptoms associated with coronavirus-19. Ebola Screen: Patient denies travel to an Ebola-affected area in the 21 days before illness onset. Initial Sepsis Screen: Does the patient meet any 2 criteria? No. Patient's initial sepsis screen is negative. Does the patient have a suspected source of infection? Yes: Skin breakdown/wound. Risk Assessment: Do you want to hurt yourself or someone else? Patient reports no desire to harm self or others. Onset of symptoms was December 15, 2020. 13:55 Method Of Arrival: Ambulatory ll1 13:55 Acuity: MARIPOSA 4 ll1 Historical: - Allergies: 13:54 Fish Containing Products; ll1 - PMHx: 13:54 None; ll1 - PSHx: 13:54 ; ll1 13:54 Cholecystectomy; ll1 - Immunization history:: Flu vaccine is not up to date. - Social history:: Smoking status: Patient reports the use of cigarette tobacco products, smokes one-half pack cigarettes per day. Vital Signs: 13:55 BP 110 / 62; Pulse 65; Resp 16; Temp 98.0; Pulse Ox 99% ; Weight 74.84 kg; Height 5 ft. ll1 1 in. (154.94 cm); Pain 7/10; 13:55 Body Mass Index 31.18 (74.84 kg, 154.94 cm) ll1 ED Course: 13:34 Patient arrived in ED. ds1 13:54 Arm band placed on. ll1 13:56 Triage completed. 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 Left without being ll1 seen. Administered Medications: No medications were administered Outcome: 15:44 Patient left the ED. ll1 Signatures: Armida Casanova ds1 Jimy Yanez RN RN ll1 Corrections: (The following items were deleted from the chart) 13:55 Acuity: MARIPOSA 3 ll1 ll1
[2020-12-22 15:51] VITALS: BP 110/62; TEMP 98; O2SAT 99
== END 2020-12-22 15:44 | disposition left against medical advice (07) ==
LOC: ER 13:32
DX: Z53.21 Procedure and treatment not carried out due to patient leaving prior to being seen by health care provider (principal)
CPT/HCPCS: 99281

== ENCOUNTER 2021-06-30 10:37 | Emergency (ER) | payer SELFPAY ==
[2021-06-30 11:25] LABS: Urine Blood Trace-intact (Negative); Urine Glucose Negative (Negative); Urine Protein Negative (Negative); Urine Specific Gravity 1.025 (1.005-1.030); Urine pH 5.5 (5.0-7.0)
[2021-06-30 12:03] LABS: Urine Bacteria <20 /HPF (<20); Urine Mucus LIGHT /HPF (NONE SEEN); Urine RBC NONE SEEN /HPF (NONE SEEN); Urine Trichomonas PRESENT (NONE SEEN); Urine Volume < 5.0 mL
[2021-06-30 12:14] LABS: Absolute Lymphocytes (CBC) 2.3 K/uL (0.7-4.9); Basophils % 1.2 % (0-1.3); Hematocrit 33.8 % (36.0-45.0); Lymphocytes % 30.9 % (15.3-44.8); MPV 9.3 fL (7.6-11.3); RBC Red Blood Cell Count 4.69 M/uL (3.86-4.86)
[2021-06-30 12:27] LABS: ALT/SGPT 20 U/L (12-78); AST/SGOT 9 U/L (15-37); Albumin 3.6 g/dL (3.4-5.0); Alkaline Phosphatase 61 U/L (45-117); BUN Blood Urea Nitrogen 8 mg/dL (7-18); Bicarbonate 23 mmol/L (21-32); Bilirubin Direct < 0.1 mg/dL (0-0.2); Bilirubin Total 0.5 mg/dL (0.2-1.0); Glucose Level 85 mg/dL (74-106); Lipase 64 U/L (73-393); Potassium 3.9 mmol/L (3.5-5.1); Protein, Total 7.4 g/dL (6.4-8.2); Sodium Level 137 mmol/L (136-145)
--- NOTE | 2021-06-30 12:35 | RAD REPORT ---
EXAM DESCRIPTION: CTAbdomen Pelvis W/Wo Contrast - 06/30/2021 12:14 pm CLINICAL HISTORY: FLANK PAIN COMPARISON: Abdomen Pelvis W Contrast dated 08/09/2018; CT ABD PELVIS W CONTRAST dated 06/24/2014 TECHNIQUE: Biphasic CT imaging of the abdomen and pelvis was performed without contrast. All CT scans are performed using dose optimization technique as appropriate and may include automated exposure control or mA/KV adjustment according to patient size. FINDINGS: Lower chest: No acute abnormality. Liver: Benign-appearing low-density lesion in the hepatic dome. Biliary: Cholecystectomy. Stomach: No significant focal abnormality. Duodenum: No significant focal abnormality. Pancreas: No significant abnormality. Spleen: No significant abnormality. Adrenal: No suspicious lesions. Kidney/ureter: No hydronephrosis. No renal calculi. Retroperitoneum: No retroperitoneal adenopathy. Bowel: Normal appendix.. Peritoneum: Trace free fluid. Bladder: Question thickened bladder versus underdistention. Reproductive: No adnexal masses. Bones: No acute fracture. Other: n/a IMPRESSION: Bladder wall thickening versus underdistention. Correlate with urinalysis. No renal or u reteral calculi identified. Normal appendix.
[2021-06-30 12:43] LABS: Urine Specific Gravity/Preg 1.025 (1.005-1.030)
--- NOTE | 2021-06-30 14:18 | ER ---
Nurse's Notes [facility] Name: Anu Tiwari Age: 31 yrs Sex: Female : 1990 Arrival Date: 06/30/2021 Time: 10:39 Bed Waiting Private MD: Diagnosis: Trichomoniasis, unspecified;Acute cystitis Presentation: 06/30 11:40 Chief complaint: Patient states: Pressure with urination since yesterday morning then jl7 flank pain radiating from LLQ to left lower back since last night. Coronavirus screen: Vaccine status: Patient reports being unvaccinated. At this time, the client does not indicate any symptoms associated with coronavirus-19. Ebola Screen: No symptoms or risks identified at this time. Initial Sepsis Screen: Does the patient meet any 2 criteria? No. Patient's initial sepsis screen is negative. Does the patient have a suspected source of infection? No. Patient's initial sepsis screen is negative. Risk Assessment: Do you want to hurt yourself or someone else? Patient reports no desire to harm self or others. Onset of symptoms was June 29, 2021. 11:40 Method Of Arrival: Ambulatory 7 11:40 Acuity: MARIPOSA 3 jl7 Triage Assessment: 11:43 General: Appears in no apparent distress. uncomfortable, Behavior is calm, cooperative, jl7 appropriate for age. Pain: Complains of pain in with urination. Neuro: Level of Consciousness is awake, alert, obeys commands. Cardiovascular: Patient's skin is warm and dry. Respiratory: Airway is patent Respiratory effort is even, unlabored, Respiratory pattern is regular, symmetrical. GI: Patient currently denies diarrhea, nausea, vomiting. : Reports burning with urination, pain in left flank(s). Derm: Skin is pink, warm \T\ dry. 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 - Social history:: Smoking status: Patient reports the use of cigarette tobacco products, smokes one-half pack cigarettes per day. Screenin:00 Abuse screen: Denies threats or abuse. Denies injuries from another. Nutritional jl7 screening: No deficits noted. Tuberculosis screening: No symptoms or risk factors identified. Fall Risk IV access (20 points). Assessment: 14:00 General: KOKO Hopkins in triage assessing pt. jl7 Vital Signs: 11:40 BP 111 / 72; Pulse 75; Resp 17; Temp 97.6; Pulse Ox 100% ; Weight 79.38 kg; Height 5 jl7 ft. 2 in. (157.48 cm); Pain 8/10; 14:00 BP 113 / 69; Pulse 61; Resp 17; Temp 97.8; Pulse Ox 97% ; jl7 11:40 Body Mass Index 32.01 (79.38 kg, 157.48 cm) jl7 ED Course: 10:39 Patient arrived in ED. as 11:42 Triage completed. jl7 11:43 Arm band placed on right wrist. Patient placed in waiting room, Patient notified of jl7 wait time. 12:14 Abdomen In Process Unspecified. EDMS 12:30 Initial lab(s) drawn, by ED staff, sent to lab. Urine collected: clean catch specimen, jl7 cloudy. Inserted saline lock: 20 gauge in left antecubital area, using aseptic technique. Blood collected. 14:00 Patient has correct armband on for positive identification. jl7 14:09 Sandeep Post PA is PHCP. jr8 14:09 Jim Booker MD is Attending Physician. jr8 14:30 No provider procedures requiring assistance completed. IV discontinued, intact, jl7 bleeding controlled, No redness/swelling at site. Pressure dressing applied. Administered Medications: No medications were administered Outcome: 14:18 Discharge ordered by . jr8 14:47 Discharged to home ambulatory. jl7 14:47 Condition: stable 14:47 Discharge instructions given to patient, Instructed on discharge instructions, follow up and referral plans. medication usage, Demonstrated understanding of instructions, follow-up care, medications, Prescriptions given X 2. 14:48 Patient left the ED. jl7 Signatures: Dispatcher [employer] EDMS Kimberly Yancey as Sandeep Post PA PA jr8 Pietro Schneider RN RN jl7 Corrections: (The following items were deleted from the chart) 11:44 11:42 Allergies: Fish Containing Products; jl7 jl7
--- NOTE | 2021-06-30 14:18 | EDPHYS ---
Physician Documentation [facility] Name: Anu Tiwari Age: 31 yrs Sex: Female : 1990 Arrival Date: 06/30/2021 Time: 10:39 Bed Waiting Private MD: ED Physician Jim Booker HPI: 06/30 17:31 This 31 yrs old Female presents to ER via Ambulatory with complaints of Flank jr8 Pain, Abdominal Pain, Pain With Urination. 17:31 Onset: The symptoms/episode began/occurred acutely. Modifying factors: The symptoms are jr8 alleviated by nothing. the symptoms are aggravated by nothing. Associated signs and symptoms: The patient has no apparent associated signs or symptoms. Severity of pain: At its worst the pain was mild in the emergency department the pain is unchanged. The patient has not experienced similar symptoms in the past. The patient has not recently seen a physician. 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 - Social history:: Smoking status: Patient reports the use of cigarette tobacco products, smokes one-half pack cigarettes per day. ROS: 17:31 Abdomen/GI: Positive for abdominal pain, Negative for nausea, vomiting, and diarrhea. jr8 17:31 Back: Positive for flank pain, on the right. 17:31 : Positive for urinary symptoms. 17:31 All other systems are negative. Exam: 17:31 Constitutional: This is a well developed, well nourished patient who is awake, alert, jr8 and in no acute distress. Cardiovascular: Regular rate and rhythm with a normal S1 and S2. No gallops, murmurs, or rubs. Normal PMI, no JVD. No pulse deficits. Respiratory: Lungs have equal breath sounds bilaterally, clear to auscultation and percussion. No rales, rhonchi or wheezes noted. No increased work of breathing, no retractions or nasal flaring. Abdomen/GI: Soft, non-tender, with normal bowel sounds. No distension or tympany. No guarding or rebound. No evidence of tenderness throughout. Back: No spinal tenderness. No costovertebral tenderness. Full range of motion. Skin: Warm, dry with normal turgor. Normal color with no rashes, no lesions, and no evidence of cellulitis. MS/ Extremity: Pulses equal, no cyanosis. Neurovascular intact. Full, normal range of motion. Neuro: Awake and alert, GCS 15, oriented to person, place, time, and situation. Cranial nerves II-XII grossly intact. Motor strength 5/5 in all extremities. Sensory grossly intact. Vital Signs: 11:40 BP 111 / 72; Pulse 75; Resp 17; Temp 97.6; Pulse Ox 100% ; Weight 79.38 kg; Height 5 jl7 ft. 2 in. (157.48 cm); Pain 8/10; 14:00 BP 113 / 69; Pulse 61; Resp 17; Temp 97.8; Pulse Ox 97% ; jl7 11:40 Body Mass Index 32.01 (79.38 kg, 157.48 cm) jl7 MDM: 14:10 Patient medically screened. jr8 14:17 Data reviewed: vital signs, nurses notes, lab test result(s), radiologic studies, CT jr8 scan. Data interpreted: Pulse oximetry: on room air is 100 %. Interpretation: normal. Counseling: I had a detailed discussion with the patient and/or guardian regarding: the historical points, exam findings, and any diagnostic results supporting the discharge/admit diagnosis, lab results, radiology results, the need for outpatient follow up, a family practitioner, to return to the emergency department if symptoms worsen or persist or if there are any questions or concerns that arise at home. 17:31 ED course: Discussed with patient that she has an STI. Possibility on CT scan also jr8 cystitis. Urine showed increased white cells without bacteria. We will continue to culture urine for sensitivity. In the meantime we will put on antibiotics to treat the STI and cystitis. No other acute findings on CT. Labs remained stable and vital signs hemodynamically stable. Close return precautions given to patient. Patient good with the plan at this time.. 06/30 11:25 Order name: Urine Dipstick-Ancillary; Complete Time: 14:08 EDDE 06/30 11:27 Order name: Urine --Ancillary (enter results); Complete Time: 14:08 bd 06/30 11:31 Order name: Urine Microscopic Only; Complete Time: 14:08 aa5 06/30 11:31 Order name: Urine Culture [facility] 06/30 11:49 Order name: Basic Metabolic Panel [facility] 06/30 11:49 Order name: CBC with Diff [facility] 06/30 11:49 Order name: Hepatic Function [facility] 06/30 11:49 Order name: Lipase [facility] 06/30 11:50 Order name: Basic Metabolic Panel; Complete Time: 14:08 EDMS 06/30 11:50 Order name: Liver (Hepatic) Function; Complete Time: 14:08 EDMS 06/30 11:50 Order name: CBC with Automated Diff; Complete Time: 14:08 EDMS 06/30 11:50 Order name: Lipase; Complete Time: 14:08 EDMS 06/30 11:49 Order name: IV Saline Lock; Complete Time: 14:27 [facility] 06/30 11:49 Order name: Labs collected and sent; Complete Time: 14:27 [facility] 06/30 11:50 Order name: IV Saline Lock; Complete Time: 14:27 [facility] 06/30 11:50 Order name: Labs collected and sent; Complete Time: 14:27 7 06/30 12:06 Order name: Abdomen ; Complete Time: 14:08 EDMS Administered Medications: No medications were administered Disposition: 07/01 09:19 Co-signature as Attending Physician, Jim Booker MD I agree with the assessment and nini plan of care. Disposition Summary: 06/30/21 14:18 Discharge Ordered Location[facility] Problem: new jr8 Symptoms: have improved jr8 Condition: Stable jr8 Diagnosis - Trichomoniasis, unspecified jr8 - Acute cystitis jr8 Followup: jr8 - With: Private Physician - When: 2 - 3 days - Reason: Recheck today's complaints, Continuance of care, Re-evaluation by your physician Discharge Instructions: - Discharge Summary Sheet jr8 - Trichomoniasis jr8 - Urinary Tract Infection, Adult jr8 - Trichomonas Test jr8 Forms: - Medication Reconciliation Form jr8 - Thank You Letter jr8 - Antibiotic Education jr8 - Prescription Opioid Use jr8 - School release form jl7 - Work release form jl7 Prescriptions: - Flagyl 500 mg Oral Tablet - take 1 tablet by ORAL route every 12 hours for 7 days; 14 tablet; Refills: 0, jr8 Product Selection Permitted - Macrobid 100 mg Oral Capsule - take 1 capsule by ORAL route every 12 hours for 7 days; 14 capsule; Refills: 0, jr8 Product Selection Permitted Signatures: Dispatcher [employer] Jim Pruitt MD MD cha Calderon, Audri, RN RN aa5 Sandeep Post PA PA jr8 Pietro Schneider RN RN jl7 Corrections: (The following items were deleted from the chart) 06/30 11:44 11:42 Allergies: Fish Containing Products; jl7 jl7 12:06 11:51 Stone Protocol+CT.RAD.BRZ ordered. FABIAN PERALTA
[2021-06-30 14:57] VITALS: BP 113/69; TEMP 97.8; O2SAT 97
== END 2021-06-30 14:48 | disposition home or self-care (01) ==
LOC: ER 10:37
DX: N30.00 Acute cystitis without hematuria (principal); A59.9 Trichomoniasis, unspecified; F17.210 Nicotine dependence, cigarettes, uncomplicated
CPT/HCPCS: 36415; 74178; 80048; 80076; 81003; 81015; 81025; 82565; 83690; 85025; 87086; 87088; 99284; Q9967

== ENCOUNTER 2022-03-29 06:10 | Emergency (ER) | payer SELFPAY ==
--- NOTE | 2022-03-29 06:40 | ER ---
Nurse's Notes [facility] Name: Anu Tiwari Age: 32 yrs Sex: Female : 1990 Arrival Date: 03/29/2022 Time: 06:13 Bed 14 Private MD: Diagnosis: Influenza due to unidentified influenza virus with other respiratory manifestations Presentation: 03/29 06:22 Chief complaint: Patient states: Fever x 2 days, reports nausea, severe body aches; lp1 patient's daughter had similar symptoms prior; Patient reports last took Nyquil at 0000. Coronavirus screen: fever, muscle pain, nausea. Ebola Screen: No symptoms or risks identified at this time. Initial Sepsis Screen: Does the patient meet any 2 criteria? HR > 90 bpm. Does the patient have a suspected source of infection? No. Patient's initial sepsis screen is negative. Risk Assessment: Do you want to hurt yourself or someone else? Patient reports no desire to harm self or others. Onset of symptoms was March 29, 2022. 06:22 Method Of Arrival: Ambulatory lp1 06:22 Acuity: MARIPOSA 4 lp1 Triage Assessment: 07:04 General: Behavior is calm, cooperative. 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 - Social history:: Smoking status: Patient reports the use of cigarette tobacco products, smokes one-half pack cigarettes per day. Screenin:43 Abuse screen: Denies threats or abuse. Nutritional screening: No deficits noted. lc1 Tuberculosis screening: No symptoms or risk factors identified. Fall Risk None identified. Assessment: 06:43 Reassessment: No changes from previously documented assessment. see triage . General: lc1 Appears in no apparent distress. Pain: Denies pain. Neuro: No deficits noted. Cardiovascular: No deficits noted. Respiratory: No deficits noted. GI: Reports nausea. : No signs and/or symptoms were reported regarding the genitourinary system. EENT: No signs and/or symptoms were reported regarding the EENT system. Derm: No signs and/or symptoms reported regarding the dermatologic system. Musculoskeletal: No signs and/or symptoms reported regarding the musculoskeletal system. Vital Signs: 06:22 BP 98 / 68; Pulse 98; Resp 16; Temp 100.2(O); Pulse Ox 99% on R/A; Weight 68.04 kg (R); lp1 Height 5 ft. 1 in. (154.94 cm); 06:22 Body Mass Index 28.34 (68.04 kg, 154.94 cm) lp1 ED Course: 06:13 Patient arrived in ED. bp1 06:14 Darvin Hill MD is Attending Physician. rn 06:17 Makenzie Davis is Primary Nurse. lc1 06:27 Triage completed. lp1 06:30 Patient notified of wait time. lc1 06:43 No apparent distress. Awaiting ED provider evaluation. lc1 06:43 Patient has correct armband on for positive identification. lc1 06:43 No provider procedures requiring assistance completed. lc1 06:43 Patient did not have IV access during this emergency room visit. 1 Administered Medications: 07:02 Drug: Motrin (ibuprofen) 800 mg Route: PO; 1 07:03 Follow up: Response: No adverse reaction 1 07:02 Drug: Ondansetron 4 mg Route: PO; 1 07:03 Follow up: Response: No adverse reaction 1 07:03 Drug: Tamiflu (oseltamivir) 75 mg Route: PO; 1 07:03 Follow up: Response: No adverse reaction [facility] Medication: 06:27 VIS not applicable for this client. 1 Outcome: 06:39 Discharge ordered by . rn 07:04 Discharged to home ambulatory. lc1 07:04 Condition: good 07:04 Discharge instructions given to patient, Instructed on discharge instructions, medication usage, Demonstrated understanding of instructions, medications, Prescriptions given X 2. 07:05 Patient left the ED. [facility] Signatures: Darvin Hill MD MD rn Calhoun, Lisa 1 Sydnee Stark RN RN 1 Frida Chau bp1
--- NOTE | 2022-03-29 06:40 | EDPHYS ---
Physician Documentation [facility] Name: Anu Tiwari Age: 32 yrs Sex: Female : 1990 Arrival Date: 03/29/2022 Time: 06:13 Bed 14 Private MD: ED Physician Darvin Hill HPI: 03/29 06:32 This 32 yrs old Female presents to ER via Ambulatory with complaints of Fever. rn 06:32 The patient reports fever, not measured (subjective). Onset: The symptoms/episode rn began/occurred yesterday. Modifying factors: Severity of symptoms: At their worst the symptoms were mild in the emergency department the symptoms are unchanged. The patient has not experienced similar symptoms in the past. The patient has not recently seen a physician. Pt reports fever, chills, body aches, congestion, ear pain for 2 days, daughter with similar illness and getting better now. NO sob. No vomiting/diarrhea. No chest pain. . 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 - Social history:: Smoking status: Patient reports the use of cigarette tobacco products, smokes one-half pack cigarettes per day. ROS: 06:32 Constitutional: + fever/chills/body aches Cardiovascular: Negative for chest pain, rn palpitations, and edema, Respiratory: + cough, neg for sob Abdomen/GI: + nausea, neg for vomiting/diarrhea MS/Extremity: Negative for injury and deformity, Skin: Negative for injury, rash, and discoloration, Neuro: Negative for numbness, tingling, and seizure. Exam: 06:32 Constitutional: This is a well developed, well nourished patient who is awake, alert, rn and in no acute distress. Head/Face: Normocephalic, atraumatic. Eyes: + bilateral conjunctival injection, no drainage ENT: dry MM, no stridor, + pharyngeal erythema without exudate Neck: + nontender bilateral cervical LAD Cardiovascular: Regular rate and rhythm. No pulse deficits. Respiratory: Speaking full sentences, unlabored. No increased work of breathing, no retractions or nasal flaring. Skin: Warm, dry MS/ Extremity: Pulses equal, no cyanosis. Neuro: Awake and alert, GCS 15 Vital Signs: 06:22 BP 98 / 68; Pulse 98; Resp 16; Temp 100.2(O); Pulse Ox 99% on R/A; Weight 68.04 kg (R); lp1 Height 5 ft. 1 in. (154.94 cm); 06:22 Body Mass Index 28.34 (68.04 kg, 154.94 cm) lp1 MDM: 06:14 Patient medically screened. rn 06:32 Differential diagnosis: viral Infection, URI. Data reviewed: vital signs, nurses notes, rn and as a result, I will discharge patient. Counseling: I had a detailed discussion with the patient and/or guardian regarding: the historical points, exam findings, and any diagnostic results supporting the discharge/admit diagnosis, the need for outpatient follow up, to return to the emergency department if symptoms worsen or persist or if there are any questions or concerns that arise at home. Special discussion: I discussed with the patient/guardian in detail that at this point there is no indication for admission to the hospital. It is understood, however, that if the symptoms persist or worsen the patient needs to return immediately for re-evaluation. ED course: Offered patient swabs vs treating for flu, patient opts for treatment instead of waiting for swabs. No oxygen requirement. Vitals stable. Recommend tamiflu and fluids/rest. Return precautions given and understood. . Administered Medications: 07:02 Drug: Motrin (ibuprofen) 800 mg Route: PO; 1 07:03 Follow up: Response: No adverse reaction 1 07:02 Drug: Ondansetron 4 mg Route: PO; 1 07:03 Follow up: Response: No adverse reaction 1 07:03 Drug: Tamiflu (oseltamivir) 75 mg Route: PO; 1 07:03 Follow up: Response: No adverse reaction 1 Disposition Summary: 03/29/22 06:39 Discharge Ordered Location: Home rn Problem: new rn Symptoms: are unchanged rn Condition: Stable rn Diagnosis - Influenza due to unidentified influenza virus with other respiratory manifestations rn Followup: rn - With: Private Physician - When: As needed - Reason: Recheck today's complaints, Re-evaluation by your physician Discharge Instructions: - Discharge Summary Sheet rn - Influenza, Adult rn Forms: - Medication Reconciliation Form rn - Thank You Letter rn - 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
[2022-03-29] MEDS ORDERED: OSELTAMIVIR 75 MG CAP ONE (06:59)
[2022-03-29] MEDS ORDERED: ONDANSETRON 4 MG (ODT) TAB ONE (07:00)
[2022-03-29] MEDS ORDERED: IBUPROFEN 400 MG TAB ONE (07:00)
[2022-03-29 07:11] VITALS: BP 98/68; TEMP 100.2; O2SAT 99
== END 2022-03-29 07:05 | disposition home or self-care (01) ==
LOC: ER 06:10
DX: J11.1 Influenza due to unidentified influenza virus with other respiratory manifestations (principal); Z20.822 Contact with and (suspected) exposure to COVID-19; F17.210 Nicotine dependence, cigarettes, uncomplicated
CPT/HCPCS: 99283

== ENCOUNTER 2022-06-27 14:38 | Emergency (ER) | payer SELFPAY ==
[2022-06-27] MEDS ORDERED: LIDOCAINE 1% MPF 30 ML VIAL ONE (16:22)
--- NOTE | 2022-06-27 17:03 | EDPHYS ---
Physician Documentation [facility] Name: Anu Tiwari Age: 32 yrs Sex: Female : 1990 Arrival Date: 06/27/2022 Time: 14:40 Bed 11 Private MD: ED Physician Darvin Hill HPI: 06/27 16:01 This 32 yrs old Female presents to ER via Ambulatory with complaints of Cyst. jmm 16:01 The patient presents with pain. Onset: The symptoms/episode began/occurred gradually, 1 jmm day(s) ago. Modifying factors: The symptoms are alleviated by nothing, the symptoms are aggravated by nothing. 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 Denies fever or chills. Patient has been diagnosed with infected cyst in the past. Denies fever.. Historical: - Allergies: 15:00 Fish Containing Products; hb - PSHx: 15:00 section; Cholecystectomy; hb - Immunization history:: Adult Immunizations up to date, Client reports having NOT received the Covid vaccine. - Social history:: Smoking status: Patient reports the use of cigarette tobacco products, smokes one-half pack cigarettes per day. ROS: 16:01 Constitutional: Negative for fever, chills, and weight loss, Cardiovascular: Negative jmm for chest pain, palpitations, and edema, Respiratory: Negative for shortness of breath, cough, wheezing, and pleuritic chest pain. 16:01 Skin: Positive for swelling. 16:01 All other systems are negative. Exam: 16:01 Constitutional: This is a well developed, well nourished patient who is awake, alert, jmm and in no acute distress. Head/Face: atraumatic. Eyes: EOMI, no conjunctival erythema appreciated ENT: Moist Mucus Membranes Neck: Trachea midline, Supple Chest/axilla: Normal chest wall appearance and motion. Cardiovascular: Regular rate and rhythm. No edema appreciated Respiratory: Normal respirations, no respiratory distress appreciated Abdomen/GI: Non distended Back: Normal ROM Skin: General appearance color normal 16:01 Musculoskeletal/extremity: Cystic lesion with erythema noted to the right lateral foot. Tender to palpation,. 16:01 Skin: Appearance: Color: normal in color. 16:01 Neuro: Orientation: is normal, Mentation: is normal, Memory: is normal. 16:01 Psych: Behavior/mood is pleasant, cooperative. Vital Signs: 14:59 BP 118 / 70; Pulse 80; Resp 16; Temp 97.8; Pulse Ox 100% on R/A; Weight 63.5 kg; Height hb 5 ft. 1 in. (154.94 cm); Pain 7/10; 14:59 Body Mass Index 26.45 (63.50 kg, 154.94 cm) hb Procedures: 18:07 I \T\ D: Incision and drainage was performed for an abscess of the right foot Prepped [facility] with Betadine, Anesthetized with 2 ml's 1% Lidocaine. Incised with #11 blade. Drained moderate amount purulent fluid. Abscess cavity explored. Packed with iodoform gauze, Dressing: sterile 4x4 gauze, the patient tolerated the procedure well. MDM: 16:01 Patient medically screened. [facility] 17:00 Data reviewed: vital signs, nurses notes. Counseling: I had a detailed discussion with [facility] the patient and/or guardian regarding: the historical points, exam findings, and any diagnostic results supporting the discharge/admit diagnosis, the need for outpatient follow up, to return to the emergency department if symptoms worsen or persist or if there are any questions or concerns that arise at home. ED course: I discussed the patient with Dr. Golden whom will follow up with the patient in the clinic. . 06/27 16:48 Order name: [facility] [place], [place]. Order: wound care; Complete Time: 17:04 [facility] Administered Medications: 16:45 Drug: Lidocaine (1 %) 20 ml {Note: administered by PA. Duran} Volume: 20 ml; Route: ss Infiltration; Disposition: 18:09 Co-signature as Attending Physician, Darvin Hill MD. rn Disposition Summary: 06/27/22 17:02 Discharge Ordered Location: Home [facility] Condition: Stable [facility] Diagnosis - Cyst of the Foot [facility] Followup: [facility] - With: Jayson Golden MD - When: Tomorrow - Reason: Recheck today's complaints, Continuance of care, Re-evaluation by your physician Discharge Instructions: - Discharge Summary Sheet [facility] - Incision and Drainage, Care After [facility] Forms: - Medication Reconciliation Form [facility] - Thank You Letter jmm - Antibiotic Education jmm - Prescription Opioid Use jm Prescriptions: - Ultracet 37.5-325 mg Oral Tablet - take 1 tablet by ORAL route every 6 hours - for up to 5 days; do not exceed 8 jmm tablets per day.; 12 tablet; Refills: 0, Product Selection Permitted - Doxycycline Hyclate 100 mg Oral Tablet - take 1 tablet by ORAL route every 12 hours; 20 tablet; Refills: 0, Product jmm Selection Permitted Signatures: Duran Ohara PA PA [facility] Darvin Hill MD MD rn Smirch, Shelby, RN RN Micaela Merritt RN RN
--- NOTE | 2022-06-27 17:03 | ER ---
Nurse's Notes [facility] Name: Anu Tiwari Age: 32 yrs Sex: Female : 1990 Arrival Date: 06/27/2022 Time: 14:40 Bed 11 Private MD: Diagnosis: Cyst of the Foot Presentation: 06/27 14:59 Chief complaint: Abscess on right ankle x 2 years, suddenly worse since yesterday. hb Coronavirus screen: At this time, the client does not indicate any symptoms associated with coronavirus-19. Ebola Screen: No symptoms or risks identified at this time. Risk Assessment: Do you want to hurt yourself or someone else? Patient reports no desire to harm self or others. Onset of symptoms was June 27, 2022. 14:59 Method Of Arrival: Ambulatory 14:59 Acuity: MARIPOSA 4 hb Historical: - Allergies: 15:00 Fish Containing Products; hb - PSHx: 15:00 section; Cholecystectomy; hb - Immunization history:: Adult Immunizations up to date, Client reports having NOT received the Covid vaccine. - Social history:: Smoking status: Patient reports the use of cigarette tobacco products, smokes one-half pack cigarettes per day. Screenin:09 Abuse screen: Denies threats or abuse. Denies injuries from another. Nutritional ss screening: No deficits noted. Tuberculosis screening: Never had TB. Fall Risk None identified. Assessment: 17:09 Reassessment: Patient appears in no apparent distress at this time. Respiratory: Airway ss is patent Respiratory effort is even, unlabored, Respiratory pattern is regular, symmetrical. Derm: Skin is pink, warm \T\ dry. normal. Vital Signs: 14:59 BP 118 / 70; Pulse 80; Resp 16; Temp 97.8; Pulse Ox 100% on R/A; Weight 63.5 kg; Height hb 5 ft. 1 in. (154.94 cm); Pain 7/10; 14:59 Body Mass Index 26.45 (63.50 kg, 154.94 cm) hb ED Course: 14:40 Patient arrived in ED. as 14:49 Duran Ohara PA is PHCP. [facility] 14:49 Darvin Hill MD is Attending Physician. [facility] 15:00 Triage completed. hb 15:00 Arm band placed on. hb 16:30 Mary Anne Baker, RN is Primary Nurse. 17:02 Jayson Golden MD is Referral Physician. [facility] 17:09 Patient has correct armband on for positive identification. Bed in low position. Call ss light in reach. 17:11 Patient did not have IV access during this emergency room visit. ss 17:11 Assist provider with I \T\ D: of an abscess on right lateral ankle. Patient maintains ss SpO2 saturation greater than 95% on room air. Administered Medications: 16:45 Drug: Lidocaine (1 %) 20 ml {Note: administered by KOKO Garzon.} Volume: 20 ml; Route: ss Infiltration; Medication: 17:09 VIS not applicable for this client. Outcome: 17:02 Discharge ordered by . [facility] 17:11 Discharged to home ambulatory, with family. ss 17:11 Condition: good 17:11 Discharge instructions given to patient, family, Instructed on discharge instructions, follow up and referral plans. Demonstrated understanding of instructions, follow-up care, Prescriptions given X 2. 17:14 Patient left the ED. Signatures: Duran Ohara PA PA jmm Martinez, Amelia as Mary Anne Baker, RN RN Micaela Merritt RN RN hb Corrections: (The following items were deleted from the chart) 17:13 17:11 No provider procedures requiring assistance completed. ss
[2022-06-27 18:29] VITALS: BP 118/70; TEMP 97.8; O2SAT 100
== END 2022-06-27 17:14 | disposition home or self-care (01) ==
LOC: ER 14:38
PROC: 0H9MXZZ Drainage of Right Foot Skin, External Approach (ICD-10-PCS; principal; 2022-06-27)
DX: L02.611 Cutaneous abscess of right foot (principal); F17.210 Nicotine dependence, cigarettes, uncomplicated; Z91.013 Allergy to seafood
CPT/HCPCS: 99284

== ENCOUNTER 2022-10-16 23:19 | Emergency (ER) | payer SELFPAY ==
--- NOTE | 2022-10-16 23:32 | ER ---
Nurse's Notes [facility] Name: Anu Tiwari Age: 32 yrs Sex: Female : 1990 Arrival Date: 10/16/2022 Time: 23:23 Bed IW4 Private MD: Diagnosis: Unspecified otitis externa, left ear Presentation: 10/16 23:26 Chief complaint: Bilateral ear pain since last night. Coronavirus screen: At this time, hb the client does not indicate any symptoms associated with coronavirus-19. Ebola Screen: No symptoms or risks identified at this time. Initial Sepsis Screen: Does the patient meet any 2 criteria? No. Patient's initial sepsis screen is negative. Does the patient have a suspected source of infection? No. Patient's initial sepsis screen is negative. Risk Assessment: Do you want to hurt yourself or someone else? Patient reports no desire to harm self or others. Onset of symptoms was October 15, 2022. 23:26 Method Of Arrival: Ambulatory hb 23:26 Acuity: MARIPOSA 4 hb Triage Assessment: 23:27 General: Appears in no apparent distress. Behavior is calm, cooperative. Pain:. Neuro: hb Level of Consciousness is awake, alert, obeys commands, Oriented to person, place, time, situation. Cardiovascular: Patient's skin is warm and dry. Respiratory: Respiratory effort is even, unlabored, Respiratory pattern is regular, symmetrical. Historical: - Allergies: 23:27 Fish Containing Products; hb - PSHx: 23:27 section; Cholecystectomy; hb - Immunization history:: Adult Immunizations up to date. - Social history:: Smoking status: Patient reports the use of cigarette tobacco products, smokes one-half pack cigarettes per day. Screenin:35 [facility] ED Fall Risk Assessment (Adult) Score/Fall Risk Level 0 - 2 = Low Risk hb Oriented to surroundings, Maintained a safe environment. Abuse screen: Denies threats or abuse. Denies injuries from another. Nutritional screening: No deficits noted. Tuberculosis screening: No symptoms or risk factors identified. Fall Risk Total Ramírez Fall Scale indicates No Risk (0-24 pts). Vital Signs: 23:26 BP 107 / 51; Pulse 89; Resp 16; Temp 99.1(TE); Pulse Ox 100% on R/A; Weight 63.5 kg; hb Height 5 ft. 1 in. (154.94 cm); Pain 10/10; 23:26 Body Mass Index 26.45 (63.50 kg, 154.94 cm) hb ED Course: 23:23 Patient arrived in ED. ja2 23:27 Triage completed. hb 23:27 Lidia Tim FNP-C is [facility]. kb 23:27 Jim Booker MD is Attending Physician. kb 23:27 Arm band placed on. hb 23:35 Patient has correct armband on for positive identification. hb 23:35 No provider procedures requiring assistance completed. Patient did not have IV access hb during this emergency room visit. Administered Medications: 23:35 Drug: Ibuprofen 600 mg Route: PO; hb Outcome: 23:32 Discharge ordered by . kb 23:35 Discharged to home ambulatory. hb 23:35 Condition: stable 23:35 Discharge instructions given to patient, Instructed on discharge instructions, follow up and referral plans. medication usage, Demonstrated understanding of instructions, follow-up care, medications, Prescriptions given X 1. 23:36 Patient left the ED. hb Signatures: Lidia Tim FNP-C FNP-Micaela Rodriguez, RN RN Heike Moyer
--- NOTE | 2022-10-16 23:32 | EDPHYS ---
Physician Documentation [facility] Name: Anu Tiwari Age: 32 yrs Sex: Female : 1990 Arrival Date: 10/16/2022 Time: 23:23 Bed IW4 Private MD: ED Physician Jim Booker HPI: 10/16 23:34 This 32 yrs old Female presents to ER via Ambulatory with complaints of Ear kb Pain. 23:34 The patient presents with drainage, pain. The complaints affect the left ear. Onset: kb The symptoms/episode began/occurred this morning. Modifying factors: The symptoms are alleviated by nothing, the symptoms are aggravated by nothing. Associated signs and symptoms: The patient has no apparent associated signs or symptoms. Severity of symptoms: At their worst the symptoms were moderate in the emergency department the symptoms are unchanged. The patient has not experienced similar symptoms in the past. The patient has not recently seen a physician. Pt reports left ear pain and right ear drainage. Historical: - Allergies: 23:27 Fish Containing Products; hb - PSHx: 23:27 section; Cholecystectomy; hb - Immunization history:: Adult Immunizations up to date. - Social history:: Smoking status: Patient reports the use of cigarette tobacco products, smokes one-half pack cigarettes per day. ROS: 23:32 Constitutional: Negative for fever, chills, and weight loss. kb 23:32 ENT: Positive for drainage from ear(s), ear pain. 23:32 All other systems are negative. Exam: 23:32 Constitutional: This is a well developed, well nourished patient who is awake, alert, kb and in no acute distress. Head/Face: Normocephalic, atraumatic. Cardiovascular: Regular rate and rhythm with a normal S1 and S2. No gallops, murmurs, or rubs. No pulse deficits. Respiratory: Respirations even and unlabored. No increased work of breathing. Talking in full sentences Abdomen/GI: Soft, non-tender. No distention Skin: Warm, dry with normal turgor. Normal color. MS/ Extremity: Pulses equal, no cyanosis. Neurovascular intact. Full, normal range of motion. Neuro: Awake and alert, GCS 15, oriented to person, place, time, and situation. Moves all extremities. Normal gait. Psych: Awake, alert, with orientation to person, place and time. Behavior, mood, and affect are within normal limits. 23:32 ENT: External ear(s): are unremarkable, Ear canal(s): erythema, that is moderate, of the left canal, swelling, that is moderate, of the left canal, TM's: are normal. Vital Signs: 23:26 BP 107 / 51; Pulse 89; Resp 16; Temp 99.1(TE); Pulse Ox 100% on R/A; Weight 63.5 kg; hb Height 5 ft. 1 in. (154.94 cm); Pain 10/10; 23:26 Body Mass Index 26.45 (63.50 kg, 154.94 cm) hb MDM: 23:31 Patient medically screened. kb 23:34 Data reviewed: vital signs, nurses notes. Data interpreted: Pulse oximetry: on room air kb is 100 %. Interpretation: normal. Counseling: I had a detailed discussion with the patient and/or guardian regarding: the historical points, exam findings, and any diagnostic results supporting the discharge/admit diagnosis, the need for outpatient follow up, a family practitioner, to return to the emergency department if symptoms worsen or persist or if there are any questions or concerns that arise at home. Administered Medications: 23:35 Drug: Ibuprofen 600 mg Route: PO; hb Disposition Summary: 10/16/22 23:32 Discharge Ordered Location: Home kb Condition: Stable kb Diagnosis - Unspecified otitis externa, left ear kb Followup: kb - With: Emergency Department - When: As needed - Reason: Worsening of condition Followup: kb - With: Private Physician - When: 2 - 3 days - Reason: Recheck today's complaints, Continuance of care, Re-evaluation by your physician Discharge Instructions: - Discharge Summary Sheet kb - Otitis Externa, [id number] kb - Ear Drops, Adult, [id number] kb Forms: - Medication Reconciliation Form kb - Thank You Letter kb - Antibiotic Education kb - Prescription Opioid Use kb Prescriptions: - Ciprodex 0.3-0.1 % Otic Drops, Suspension - instill 4 drops by OTIC route every 12 hours for 7 days , for ears ONLY; 1 kb Container; Refills: 0, Product Selection Permitted Signatures: Lidia Tim, BRAD-C BRAD-Micaela Rodriguez RN RN hb
[2022-10-16] MEDS ORDERED: IBUPROFEN 200 MG TAB PO ONE (23:35)
[2022-10-16 23:45] VITALS: BP 107/51; TEMP 99.1; O2SAT 100
== END 2022-10-16 23:36 | disposition home or self-care (01) ==
LOC: ER 23:19
DX: H60.92 Unspecified otitis externa, left ear (principal); F17.210 Nicotine dependence, cigarettes, uncomplicated; Z91.013 Allergy to seafood
CPT/HCPCS: 99283